=== PATIENT | female | born 1990 | race Caucasian/White ===

== ENCOUNTER 2016-11-15 05:28 | Emergency (ER) | payer OTHER ==
[2016-11-15 05:37] VITALS: BMI 35.2
--- NOTE | 2016-11-15 05:47 | PDOC ---
History of Present Illness - General History Source: Patient Exam Limitations: No Limitations - History of Present Illness Initial Comments: 11/15/16 06:09 The patient is a 26 year old female (), with a significant past medical history of left ovary removal and cholecystectomy, who presents to the emergency department complaining of non-radiating abdominal pain for one day. The patient reports the pain is crampy and intermittent in nature, with episodes lasting several minutes. The patient reports her LMP was approximately one month ago and is expecting it to initiate in 1-2 days. She states she is short of breath when the pain begins, but denies any chest pain, palpitations, or diaphoresis. She reports several episodes of nonbloody vomiting and diarrhea one day ago. She denies associated nausea or constipation. She denies any fever , chills, cough, headache, dizziness, changes in vision, or changes in urination patterns. She denies any recent travel or sick contacts. Allergies: NKDA. Seafood. Past Surgical History: LT ovary removal, cholecystectomy Social History: Non-smoker. Denies alcohol or drug use. <Remigio Barroso - Last Filed: 11/15/16 06:08> <Sirisha Francisco - Last Filed: 11/17/16 00:55> - General Chief Complaint: Pain, Acute Stated Complaint: ABDOMINAL PAIN Time Seen by Provider: 11/15/16 05:47 Past History <Remigio Barroso - Last Filed: 11/15/16 06:08> - Past Medical History Suicide Attempt (Hx): No - Surgical History Abdominal Surgery: Yes (LT ovary removed) Cholecystectomy: Yes - Immunization History Immunization Up to Date: No - Psycho/Social/Smoking Cessation Hx Anxiety: No Suicidal Ideation: No Smoking Status: No Smoking History: Never smoked Years of Tobacco Use: 0 Have you smoked in the past 12 months: No Number of Cigarettes Smoked Daily: 0 Cigars Per Day: 0 Hx Alcohol Use: No Drug/Substance Use Hx: No Substance Use Type: None <Sirisha Francisco - Last Filed: 11/17/16 00:55> - Past Medical History Allergies/Adverse Reactions: Allergies Allergy/AdvReac Type Severity Reaction Status Date / Time SEAFOOD AdvReac Vomiting Uncoded 11/15/16 05:31 Home Medications: Ambulatory Orders NK [No Known Home Medication] 11/15/16 Review of Systems - Review of Systems Able to Perform ROS?: Yes Comments:: 11/15/16 06:09 GENERAL/CONSTITUTIONAL: No fever or chills. No weakness. HEAD, EYES, EARS, NOSE AND THROAT: No change in vision. No ear pain or discharge. No sore throat. CARDIOVASCULAR: _Mild SOB. No chest pain. RESPIRATORY: No cough, wheezing, or hemoptysis. GASTROINTESTINAL: +Abdominal pain, +vomiting, +diarrhea. No nausea or constipation. GENITOURINARY: No dysuria, frequency, or change in urination. MUSCULOSKELETAL: No joint or muscle swelling or pain. No neck or back pain. SKIN: No rash NEUROLOGIC: No headache, vertigo, loss of consciousness, or change in strength/ sensation. ENDOCRINE: No increased thirst. No abnormal weight change. HEMATOLOGIC/LYMPHATIC: No anemia, easy bleeding, or history of blood clots. ALLERGIC/IMMUNOLOGIC: No hives or skin allergy. <Remigio Barroso - Last Filed: 11/15/16 06:08> *Physical Exam - Vital Signs Last Vital Signs Temp Pulse Resp BP Pulse Ox 97.7 F 95 H 18 132/70 96 11/15/16 05:35 11/15/16 05:35 11/15/16 05:35 11/15/16 05:35 11/15/16 05:35 - Physical Exam Comments: 11/15/16 06:09 GENERAL: Awake, alert, and fully oriented, in no acute distress HEAD: No signs of trauma EYES: PERRLA, EOMI, sclera anicteric, conjunctiva clear ENT: Auricles normal inspection, hearing grossly normal, nares patent, oropharynx clear without exudates. Moist mucosa NECK: Normal ROM, supple, no lymphadenopathy, JVD, or masses LUNGS: Breath sounds equal, clear to auscultation bilaterally. No wheezes, and no crackles HEART: Regular rate and rhythm, normal S1 and S2, no murmurs, rubs or gallops ABDOMEN: +Tenderness to palpation in the lower epigastric region. Normoactive bowel sounds. No guarding, no rebound. No masses EXTREMITIES: Normal range of motion, no edema. No clubbing or cyanosis. No cords, erythema, or tenderness NEUROLOGICAL: Cranial nerves II through XII grossly intact. Normal speech, normal gait SKIN: Warm, Dry, normal turgor, no rashes or lesions noted. <Remigio Barroso - Last Filed: 11/15/16 06:08> - Vital Signs Last Vital Signs Temp Pulse Resp BP Pulse Ox 97.7 F 95 H 18 132/70 96 11/15/16 05:35 11/15/16 05:35 11/15/16 05:35 11/15/16 05:35 11/15/16 05:35 <Sirisha Francisco - Last Filed: 11/17/16 00:55> ED Treatment Course - LABORATORY CBC & Chemistry Diagram: 11/15/16 06:12 11/15/16 07:00 <Sirisha Francisco - Last Filed: 11/17/16 00:55> Medical Decision Making - Medical Decision Making 11/15/16 06:58 Pt comes with vomiting multiple times and abdominal pain. She has a totally normal exam, except that she complains of LLQ pain. SHe is afebrile. No diarrhea and no dysuria. She has minimal pain with palpation. She has no guarding and no rebound. She doesn't know if she is , but she expects her next period any day now. Pt will be hydrated and given pepcid and zofran and she will have labs sent and UA and urine . Pt appears well; she was given toradol for the abd pain 11/15/16 07:03 Pt will be signed out to the day ER doc Labs pending <Sirisha Francisco - Last Filed: 11/17/16 00:55> *DC/Admit/Observation/Transfer - Attestations Scribe Attestion: 11/15/16 06:09 Documentation prepared by Remigio Barroso, acting as senior medical billing specialist for Sirisha Francisco MD. <Remigio Barroso - Last Filed: 11/15/16 06:08> <Sirisha Francisco - Last Filed: 11/17/16 00:55> Diagnosis at time of Disposition: Abdominal pain, Diarrhea, Nausea and vomiting - Discharge Dispostion Disposition: HOME Condition at time of disposition: Stable - Referrals Referrals: Smitha Neal MD [Primary Care Provider] - - Patient Instructions Printed Discharge Instructions: Diarrhea Additional Instructions: Make sure that you drink lots of fluids and maintain hydration. He may eat any foods that do not irritate her stomach; I recommend that you start out with bland foods and advance your diet as tolerated. Follow-up with her primary care physician within one week. Return to the emergency department if your symptoms persist, worsen, or new symptoms arise.
[2016-11-15] MEDS ORDERED: KETOROLAC TROMETHAMINE 30 MG/1 ML VIAL IVPUSH ONE (06:24)
[2016-11-15 06:34] LABS: BASOPHIL 0.3 % (0-2.0); MCH 29.5 pg (25.7-33.7); MCHC 33.9 g/dl (32.0-36.0); MEAN PLT VOLUME 9.4 fl (7.5-11.1); NEUTROPHILS 85.8 % (42.8-82.8); PLATELET COUNT 262 K/MM3 (134-434); RDW 14.5 % (11.6-15.6); WHITE BLOOD COUNT 5.6 K/mm3 (4.0-10.0)
[2016-11-15 07:47] LABS: ANION GAP 10 (8-16); BILIRUBIN,TOTAL 0.5 mg/dL (0.2-1.0); CALCIUM 7.6 mg/dL (8.5-10.1); CO2 25 mmol/L (21-32); CREATININE 0.6 mg/dL (0.55-1.02); GLUCOSE,RANDOM 114 mg/dL (74-106); SGOT/AST 19 U/L (15-37); SGPT/ALT 19 U/L (12-78); TOT PROT 6.4 g/dl (6.4-8.2)
[2016-11-15 07:48] LABS: ALK PHOS 82 U/L (45-117)
[2016-11-15 09:32] LABS: NEG URINE CALC NO; URINE APPEARANCE SL CLOUDY; URINE BILIRUBIN NEGATIVE (NEGATIVE); URINE BLOOD NEGATIVE (NEGATIVE); URINE COLOR YELLOW; URINE GLUCOSE (UA) NEGATIVE (NEGATIVE); URINE KETONE 1+ (NEGATIVE); URINE PROTEIN NEGATIVE (NEGATIVE); URINE UROBILINOGEN NORMAL E.U./dl (0.2-1.0)
[2016-11-15 09:33] LABS: URINE LEUK ESTERASE NEGATIVE (NEGATIVE); URINE NITRITE NEGATIVE (NEGATIVE)
[2016-11-15 09:36] VITALS: BP 106/70; PULSE 88
[2016-11-15] MEDS ORDERED: IBUPROFEN 400 MG TABLET (FP) PO ONE ×2 (09:54→10:10)
[2016-11-15 10:24] VITALS: TEMP 98.5
--- NOTE | 2016-11-15 10:25 | PDOC ---
*Physical Exam - Vital Signs Last Vital Signs Temp Pulse Resp BP Pulse Ox 97.7 F 88 18 106/70 100 11/15/16 05:35 11/15/16 09:36 11/15/16 09:36 11/15/16 09:36 11/15/16 09:36 ED Treatment Course - LABORATORY CBC & Chemistry Diagram: 11/15/16 06:12 11/15/16 07:00 - ADDITIONAL ORDERS Additional order review: Laboratory Results 11/15/16 11/15/16 11/15/16 07:00 06:59 06:12 Sodium 142 Cancelled Potassium 3.9 Cancelled Chloride 107 Cancelled Carbon Dioxide 25 Cancelled Anion Gap 10 Cancelled BUN 13 Cancelled Creatinine 0.6 Cancelled Creat Clearance w eGFR > 60 Cancelled Random Glucose 114 H D Cancelled Calcium 7.6 L Cancelled Total Bilirubin 0.5 D Cancelled AST 19 Cancelled ALT 19 D Cancelled Alkaline Phosphatase 82 D Cancelled Total Protein 6.4 Cancelled Albumin 3.0 L Cancelled Lipase 81 Cancelled Serum , Qual Negative Urine Color Urine Appearance Urine pH Ur Specific [place] Urine Protein Urine Glucose (UA) Urine Ketones Urine Blood Urine Nitrite Urine Bilirubin Urine Ictotest Prot Sulfosalicylic Acd Urine Urobilinogen Ur Leukocyte Esterase 11/15/16 06:12 Sodium Potassium Chloride Carbon Dioxide Anion Gap BUN Creatinine Creat Clearance w eGFR Random Glucose Calcium Total Bilirubin AST ALT Alkaline Phosphatase Total Protein Albumin Lipase Serum , Qual Negative Urine Color Yellow Urine Appearance Sl cloudy Urine pH 6.0 Ur Specific [place] 1.005 Urine Protein Negative Urine Glucose (UA) Negative Urine Ketones 1+ H Urine Blood Negative Urine Nitrite Negative Urine Bilirubin Negative Urine Ictotest Negative Prot Sulfosalicylic Acd Negative Urine Urobilinogen Normal Ur Leukocyte Esterase Negative D 11/15/16 06:12 RBC 4.46 MCV 87.0 MCHC 33.9 RDW 14.5 MPV 9.4 D Neutrophils % 85.8 H D Lymphocytes % 9.3 D Monocytes % 4.6 Eosinophils % 0.0 D Basophils % 0.3 - Medications Given in the ED: ED Medications Discontinued Medications Generic Name Dose Route Start Last Admin Trade Name Freq PRN Reason Stop Dose Admin Ketorolac Tromethamine 30 mg 11/15/16 06:24 11/15/16 06:27 Toradol Injection - IVPUSH 11/15/16 06:25 30 mg ONCE ONE Administration Progress Note - Progress Note Progress Note: The patient was endorsed to me at [address] Harding pending labs and reevaluation. The labs were reviewed and are noted in the electronic medical record. The patient is not . The urine analysis is negative. The patient is feeling improved and has intermittent diarrhea associated with abdominal cramping. She was able to tolerate by mouth without nausea or vomiting. The plan is to discharge the patient home. I've advised the patient to follow-up with her primary care physician within one week. I've also advised the patient that she may return to the emergency department if her symptoms persist, worsen, or new symptoms arise. *DC/Admit/Observation/Transfer Diagnosis at time of Disposition: Abdominal pain, Diarrhea, Nausea and vomiting - Discharge Dispostion Disposition: HOME Condition at time of disposition: Stable Admit: No - Referrals Referrals: Smitha Neal MD [Primary Care Provider] - - Patient Instructions Printed Discharge Instructions: Diarrhea Additional Instructions: Make sure that you drink lots of fluids and maintain hydration. He may eat any foods that do not irritate her stomach; I recommend that you start out with bland foods and advance your diet as tolerated. Follow-up with her primary care physician within one week. Return to the emergency department if your symptoms persist, worsen, or new symptoms arise. - Post Discharge Activity
== END 2016-11-15 10:56 | disposition home or self-care (01) ==
LOC: JER 05:28
PROC: 3E0333Z Introduction of Anti-inflammatory into Peripheral Vein, Percutaneous Approach (ICD-10-PCS; principal; 2016-11-15)
DX: R10.84 Generalized abdominal pain (principal); R11.2 Nausea with vomiting, unspecified
CPT/HCPCS: 36415; 80053; 81003; 83690; 84703; 85025; 96374; 99283-25

== ENCOUNTER 2016-11-19 15:14 | Emergency (ER) | payer OTHER ==
[2016-11-19 15:18] VITALS: BP 118/70; PULSE 57; TEMP 97.7; BMI 39.4
--- NOTE | 2016-11-19 15:40 | PDOC ---
History of Present Illness - General Chief Complaint: Pain Stated Complaint: ABD PAIN, DIARRHEA Time Seen by Provider: 11/19/16 15:36 History Source: Patient Exam Limitations: No Limitations - History of Present Illness Initial Comments: 11/19/16 15:46 Patient is a 26 year old female with PMH of left ovary removal (cyst) who presents to ED with abdominal pain. Patient was seen in ED last Thursday ( November 15) for diffuse abdominal pain, vomiting & diarrhea. She was discharged after Zofran & pepcid administered and after (-) workup. Since then, patient states her nausea & vomiting has resolved. However, her diarrhea has continued, and although it has markedly improved, her diffuse abdominal tenderness continues. Patient is currently on her menstrual period. Past History - Past Medical History Allergies/Adverse Reactions: Allergies Allergy/AdvReac Type Severity Reaction Status Date / Time SEAFOOD AdvReac Vomiting Uncoded 11/19/16 15:18 Home Medications: Ambulatory Orders NK [No Known Home Medication] 11/15/16 Suicide Attempt (Hx): No - Surgical History Abdominal Surgery: Yes (LT ovary removed) Cholecystectomy: Yes - Immunization History Immunization Up to Date: No - Psycho/Social/Smoking Cessation Hx Anxiety: No Suicidal Ideation: No Smoking Status: No Smoking History: Never smoked Years of Tobacco Use: 0 Have you smoked in the past 12 months: No Number of Cigarettes Smoked Daily: 0 Cigars Per Day: 0 Hx Alcohol Use: No Drug/Substance Use Hx: No Substance Use Type: None Review of Systems - Review of Systems Able to Perform ROS?: Yes Is the patient limited Georgian proficient: No Constitutional: Yes: Malaise ABD/GI: Yes: Diarrhea, Abdominal cramping. No: Nausea, Vomiting All Other Systems: Reviewed and Negative *Physical Exam - Vital Signs Last Vital Signs Temp Pulse Resp BP Pulse Ox 97.7 F 57 L 20 118/70 100 11/19/16 15:15 11/19/16 15:15 11/19/16 15:15 11/19/16 15:15 11/19/16 15:15 - Physical Exam General Appearance: Yes: Nourished, Appropriately Dressed HEENT: positive: EOMI, LEYDI, Normal ENT Inspection, Pharynx Normal Neck: positive: Trachea midline, Normal Thyroid, Supple Respiratory/Chest: positive: Lungs Clear, Normal Breath Sounds Cardiovascular: positive: Regular Rhythm, Regular Rate, S1, S2 Gastrointestinal/Abdominal: positive: Normal Bowel Sounds, Flat, Soft Musculoskeletal: positive: Normal Inspection Extremity: positive: Normal Capillary Refill, Normal Inspection, Normal Range of Motion Integumentary: positive: Normal Color, Dry, Warm Neurologic: positive: serology technician II-XII NML intact, Fully Oriented, Alert, Normal Mood/ Affect, Motor Strength 02/20 ED Treatment Course - LABORATORY CBC & Chemistry Diagram: 11/19/16 16:05 11/19/16 16:05 Medical Decision Making - Medical Decision Making 11/19/16 16:36 Patient states vomiting has resolved and diarrhea is becoming less frequent. Viral gastroenteritis likely continued from this weekend but is improving. Will treat with IVF given diarrhea. Pending lab results can be discharged. 11/19/16 18:38 CBC without signs of leukocytosis. CMP shows no signs dehydration. UA without signs of UTI. Patient to be discharged with instructions to f/u with PCP within 1-2 days. Instructed to keep hydrated & start introducing soup to her diet later tonight and gradually upgrade to solid foods. Instructed to return to ED if abdominal pain worsens or she develops fever or new symptoms. *DC/Admit/Observation/Transfer Diagnosis at time of Disposition: Viral gastroenteritis - Discharge Dispostion Disposition: HOME Condition at time of disposition: Improved Admit: No - Patient Instructions Additional Instructions: Followup with your primary doctor within 1-2 days for checkup Stay hydrated. Start with soup tonight & gradually upgrade your diet to solid foods. If abdominal pain worsens or diarrhea/vomiting continues, return to ED. - Post Discharge Activity Work/School Note: Back to Work
[2016-11-19] MEDS ORDERED: SODIUM CHLORIDE 1,000 ML IV STA (16:04)
[2016-11-19 16:14] LABS: BASOPHIL 0.9 % (0-2.0); EOSINOPHIL 2.3 % (0-4.5); MCH 29.3 pg (25.7-33.7); MCHC 33.4 g/dl (32.0-36.0); MEAN CELL VOLUME 87.6 fl (80-96); MEAN PLT VOLUME 8.5 fl (7.5-11.1); NEUTROPHILS 62.9 % (42.8-82.8); PLATELET COUNT 270 K/MM3 (134-434); RDW 14.3 % (11.6-15.6); WHITE BLOOD COUNT 6.4 K/mm3 (4.0-10.0)
[2016-11-19 16:16] LABS: URINE APPEARANCE CLEAR; URINE BILIRUBIN NEGATIVE (NEGATIVE); URINE COLOR YELLOW; URINE GLUCOSE (UA) NEGATIVE (NEGATIVE); URINE KETONE NEGATIVE (NEGATIVE); URINE NITRITE NEGATIVE (NEGATIVE); URINE PROTEIN NEGATIVE (NEGATIVE); URINE UROBILINOGEN 2.0 E.U/dl E.U./dl (0.2-1.0)
[2016-11-19 16:18] LABS: URINE BLOOD 3+ (NEGATIVE); URINE LEUK ESTERASE TRACE (NEGATIVE)
[2016-11-19 16:20] LABS: URINE MUCUS MANY; URINE RBC 672 /hpf (0-3); URINE WBC 8 /hpf (3-5)
--- NOTE | 2016-11-19 16:32 | PDOC ---
Attending Attestation - Resident Resident Name: GladisWalt - ED Attending Attestation I have performed the following: I have examined & evaluated the patient, The case was reviewed & discussed with the resident, I agree w/resident's findings & plan - HPI HPI: 11/19/16 17:00 26y F no pmhx presents with abd pain and diarrhea x 6 days. Pt stattes it originally started with vomiting/diarrhea, she came for evaluation on thursday and had blood work, was d/c and has since felt improved. states her diarrhea is less frequent, vomiting resolved and abdominal pain is improved. Pt denie sany fever, melena, bpr, recent abx use. 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 pts exam unremarkable, with soft abdomen, well hydrated mucus membranes. will ck labs, will give fluids will reassess, do not anticipate need for CT based on abdominal exam. likely d/c with supportive care. 11/19/16 19:00 labs unremarkable UA shows blood but likely secondary to pt having her period currenlty pt wlil be d/c with pmd fu return precautions were discussed - Physicial Exam PE: 11/24/16 08:04 see above - Medical Decision Making 11/24/16 08:04 see above 11/24/16 08:05
[2016-11-19 16:48] LABS: ALBUMIN 3.6 g/dl (3.4-5.0); ANION GAP 7 (8-16); BILIRUBIN,TOTAL 0.4 mg/dL (0.2-1.0); CALCIUM 8.6 mg/dL (8.5-10.1); CO2 31 mmol/L (21-32); CREATININE 0.6 mg/dL (0.55-1.02); GLUCOSE,RANDOM 81 mg/dL (74-106); SGOT/AST 21 U/L (15-37); SGPT/ALT 30 U/L (12-78); TOT PROT 7.2 g/dl (6.4-8.2)
[2016-11-19 16:49] LABS: ALK PHOS 84 U/L (45-117)
== END 2016-11-19 18:59 | disposition home or self-care (01) ==
LOC: JER 15:14
PROC: 3E0337Z Introduction of Electrolytic and Water Balance Substance into Peripheral Vein, Percutaneous Approach (ICD-10-PCS; principal; 2016-11-19)
DX: K52.9 Noninfective gastroenteritis and colitis, unspecified (principal); B97.89 Other viral agents as the cause of diseases classified elsewhere
CPT/HCPCS: 36415; 80053; 81003; 81015; 83690; 84703; 85025; 96360; 99282-25

== ENCOUNTER 2017-08-19 21:39 | Emergency (ER) | payer OTHER ==
[2017-08-19] MEDS ORDERED: ACETAMINOPHEN 500 MG TABLET (FP) PO ONE (21:49)
--- NOTE | 2017-08-19 21:49 | PDOC ---
Rapid Medical Evaluation Time Seen by Provider: 08/19/17 21:40 Medical Evaluation: Allergies Allergy/AdvReac Type Severity Reaction Status Date / Time No Known Drug Allergies Allergy Verified 04/18/17 04:55 SEAFOOD AdvReac Vomiting Uncoded 04/18/17 04:45 08/19/17 21:40 I have performed a brief in-person evaluation of this patient. The patient presents with a chief complaint of fever and upper back pain. Pertinent physical exam findings: PULM: Respirations even and unlabored. Lungs CTAB. Card: S1S2 present. No murmurs, rub or gallop. ENT: Erythema to tonsillar pilars. No exudates noted. No cervical lymphadenopathy. M/S: Tenderness to T2-T8. No CVAT. I have ordered the following: Tylenol 1000mg PO The patient will proceed to the ED for further evaluation.
[2017-08-19 21:50] VITALS: BMI 39.6
[2017-08-20] MEDS ORDERED: DICYCLOMINE HCL 10 MG CAPSULE PO ONE (00:19)
[2017-08-20] MEDS ORDERED: ACETAMINOPHEN 325 MG TABLET (FP) ONE (00:23)
[2017-08-20] MEDS ORDERED: DICYCLOMINE HCL 10 MG CAPSULE ONE (00:23)
[2017-08-20 00:44] LABS: URINE APPEARANCE SLCLOUDY; URINE BLOOD 2+ (NEGATIVE); URINE COLOR YELLOW; URINE GLUCOSE (UA) NEGATIVE (NEGATIVE); URINE KETONE NEGATIVE (NEGATIVE); URINE NITRITE NEGATIVE (NEGATIVE); URINE PROTEIN NEGATIVE (NEGATIVE); URINE UROBILINOGEN NEGATIVE mg/dL (0.2-1.0)
--- NOTE | 2017-08-20 00:45 | PDOC ---
History of Present Illness - General History Source: Patient <Haresh Meléndez - Last Filed: 08/20/17 01:53> - General History Source: Patient Exam Limitations: No Limitations - History of Present Illness Initial Comments: 08/20/17 02:04 The patient is a 27 year old female with no significant PMH who presents to the emergency department with 1 day of generalized malaise, low grade fever, and back pain. The patient describes the back pain as localized in the upper thoracic region with no radiation, 6/10 in severity at rest and 10/10 at its worst. She reports visiting urgent care today and having a urinalysis, which showed no remarkable findings. The patient also reports a diffuse headache in the past which has been throbbing with no radiation, but denies headache upon presentation. The patient denies chest pain, shortness of breath and dizziness. Denies chills, nausea, vomit, diarrhea and constipation. Denies dysuria, frequency, urgency and hematuria. LMP: 08/20/2017 Allergies: NKDA Past surgical history: Left ovary removal. Cholecystectomy. Social history: No reported toxic habits. PCP: Dr. Guidry <Robin Hendricks - Last Filed: 08/20/17 02:05> - General Chief Complaint: Pain Stated Complaint: FEVER/BACK PAIN Time Seen by Provider: 08/19/17 21:40 Past History - Past Medical History COPD: No Other medical history: Pt denies - Surgical History Abdominal Surgery: Yes (LT ovary removed) Cholecystectomy: Yes - Reproductive History Is Patient Now?: No - Immunization History Immunization Up to Date: No - Suicide/Smoking/Psychosocial Hx Smoking Status: No Smoking History: Never smoked Years of Tobacco Use: 0 Have you smoked in the past 12 months: No Number of Cigarettes Smoked Daily: 0 Cigars Per Day: 0 Information on smoking cessation initiated: No Hx Alcohol Use: No Drug/Substance Use Hx: No Substance Use Type: None <Haresh Meléndez - Last Filed: 08/20/17 01:53> <Robin Hendricks - Last Filed: 08/20/17 02:05> - Past Medical History Allergies/Adverse Reactions: Allergies Allergy/AdvReac Type Severity Reaction Status Date / Time No Known Drug Allergies Allergy Verified 08/19/17 21:45 SEAFOOD AdvReac Vomiting Uncoded 04/18/17 04:45 Home Medications: Ambulatory Orders Dicyclomine HCl [Bentyl -] 20 mg PO Q8H #30 tablet 08/20/17 Methocarbamol 500 mg PO DAILY 08/20/17 Review of Systems - Review of Systems Able to Perform ROS?: Yes Comments:: 08/20/17 02:04 CONSTITUTIONAL: (+) Generalized malaise. (+) Low grade fever. Absent: chills, diaphoresis, generalized weakness, loss of appetite HEENT: Absent: rhinorrhea, nasal congestion, throat pain, throat swelling, difficulty swallowing, mouth swelling, ear pain, eye pain, visual Changes CARDIOVASCULAR: Absent: chest pain, syncope, palpitations, irregular heart rate, lightheadedness , peripheral edema RESPIRATORY: Absent: cough, shortness of breath, dyspnea with exertion, orthopnea, wheezing, stridor, hemoptysis GASTROINTESTINAL: Absent: abdominal pain, abdominal distension, nausea, vomiting, diarrhea, constipation, melena, hematochezia GENITOURINARY: Absent: dysuria, frequency, urgency, hesitancy, hematuria, flank pain, genital pain MUSCULOSKELETAL: (+) Upper back pain. Absent: arthralgia, joint swelling SKIN: Absent: rash, itching, pallor HEMATOLOGIC/IMMUNOLOGIC: Absent: easy bleeding, easy bruising, lymphadenopathy, frequent infections ENDOCRINE: Absent: unexplained weight gain, unexplained weight loss, heat intolerance, cold intolerance NEUROLOGIC: Absent: headache, focal weakness or paresthesias, dizziness, unsteady gait, seizure, mental status changes, bladder or bowel incontinence PSYCHIATRIC: Absent: anxiety, depression, suicidal or homicidal ideation, hallucinations. <Robin Hendricks - Last Filed: 08/20/17 02:05> *Physical Exam - Vital Signs Last Vital Signs Temp Pulse Resp BP Pulse Ox 98.6 F 95 H 18 120/43 99 08/19/17 21:45 08/19/17 21:45 08/19/17 21:45 08/19/17 21:45 08/19/17 21:45 <Haresh Meléndez - Last Filed: 08/20/17 01:53> - Vital Signs Last Vital Signs Temp Pulse Resp BP Pulse Ox 98 F 86 18 117/57 95 08/20/17 02:00 08/20/17 02:00 08/20/17 02:00 08/20/17 02:00 08/20/17 02:00 - Physical Exam Comments: 08/20/17 02:04 GENERAL: Well developed, well nourished. Awake and alert. No acute distress. HEENT: Normocephalic, atraumatic. PERRLA, EOMI. No conjunctival pallor. Sclera are non- icteric. Moist mucous membranes. Oropharynx is clear. NECK: Supple. Full ROM. No JVD. Carotid pulses 2+ and symmetric, without bruits. No thyromegaly. No lymphadenopathy. CARDIOVASCULAR: Regular rate and rhythm. No murmurs, rubs, or gallops. Distal pulses are 2+ and symmetric. PULMONARY: No evidence of respiratory distress. Lungs clear to auscultation bilaterally. No wheezing, rales or rhonchi. ABDOMINAL: Soft. Non-tender. Non-distended. No rebound or guarding. No organomegaly. Normoactive bowel sounds. MUSCULOSKELETAL Normal range of motion at all joints. No bony deformities or tenderness. No CVA tenderness. EXTREMITIES: No cyanosis. No clubbing. No edema. No calf tenderness. SKIN: Warm and dry. Normal capillary refill. No rashes. No jaundice. NEUROLOGICAL: Alert, awake, appropriate. Cranial nerves 2-12 intact. No deficits to light touch and temperature in face, upper extremities and lower extremities. No motor deficits in the in face, upper extremities and lower extremities. Normoreflexic in the upper and lower extremities. Normal speech. Toes are downgoing bilaterally. Gait is normal without ataxia. PSYCHIATRIC: Cooperative. Good eye contact. Appropriate mood and affect. <Robin Hendricks - Last Filed: 08/20/17 02:05> ED Treatment Course - Medications Given in the ED: ED Medications Discontinued Medications Generic Name Dose Route Start Last Admin Trade Name Freq PRN Reason Stop Dose Admin Acetaminophen 1,000 mg 08/19/17 21:49 08/20/17 00:29 Tylenol - PO 08/19/17 21:50 1,000 mg ONCE ONE Administration Dicyclomine HCl 20 mg 08/20/17 00:19 08/20/17 00:29 Bentyl - PO 08/20/17 00:20 20 mg ONCE ONE Administration <Haresh Meléndez - Last Filed: 08/20/17 01:53> - ADDITIONAL ORDERS Additional order review: Laboratory Results 08/20/17 00:33 Urine Color Yellow Urine Appearance Slcloudy Urine pH 5.0 Ur Specific [place] 1.021 Urine Protein Negative Urine Glucose (UA) Negative Urine Ketones Negative Urine Blood 2+ H Urine Nitrite Negative Urine Bilirubin 2.0 Urine Urobilinogen Negative Urine RBC 165 Urine WBC 3 Ur Epithelial Cells Rare Urine Mucus Few Urine HCG, Qual Negative - Medications Given in the ED: ED Medications Discontinued Medications Generic Name Dose Route Start Last Admin Trade Name Dagmar PRN Reason Stop Dose Admin Acetaminophen 1,000 mg 08/19/17 21:49 08/20/17 00:29 Tylenol - PO 08/19/17 21:50 1,000 mg ONCE ONE Administration Dicyclomine HCl 20 mg 08/20/17 00:19 08/20/17 00:29 Bentyl - PO 08/20/17 00:20 20 mg ONCE ONE Administration <Robin Hendricks - Last Filed: 08/20/17 02:05> Medical Decision Making - Medical Decision Making 08/20/17 01:45 Dr. Meléndez: The scribe's documentation has been prepared under my direction and personally reviewed by me in its entirery. I confirm that the note above accurately reflects all work, treatment, procedures, and medical decision making performed by me. <Haresh Meléndez - Last Filed: 08/20/17 01:53> *DC/Admit/Observation/Transfer - Discharge Dispostion Admit: No <Haresh Meléndez - Last Filed: 08/20/17 01:53> - Attestations Scribe Attestion: 08/20/17 02:04 Documentation prepared by Robin Hendricks, acting as medical data entry clerk for Haresh Meléndez DO. <Robin Hendricks - Last Filed: 08/20/17 02:05> Diagnosis at time of Disposition: [place] - Discharge Dispostion Disposition: HOME Condition at time of disposition: Stable - Prescriptions Prescriptions: Dicyclomine HCl [Bentyl -] 20 mg PO Q8H #30 tablet - Referrals Referrals: Carlee Maravilla MD [Primary Care Provider] - - Patient Instructions Printed Discharge Instructions: DI for Pelvic Pain Additional Instructions: take medication as directed. Pt return if symptoms don't improve. Follow up with yur primary care or [facility] as needed
[2017-08-20 00:49] LABS: URINE MUCUS FEW; URINE RBC 165 /hpf (0-3); URINE WBC 3 /hpf (3-5)
[2017-08-20 02:01] VITALS: BP 117/57; PULSE 86; TEMP 98
[2017-08-20 11:13] LABS: URINE LEUK ESTERASE Negative (NEGATIVE)
== END 2017-08-20 01:58 | disposition home or self-care (01) ==
LOC: JER 21:39
DX: N94.0 Mittelschmerz (principal)
CPT/HCPCS: 81003; 81015; 84703; 87086; 99284-25

== ENCOUNTER 2017-10-08 20:22 | Emergency (ER) | payer OTHER ==
[2017-10-08 20:30] VITALS: BMI 39.6
--- NOTE | 2017-10-08 20:31 | PDOC ---
Rapid Medical Evaluation Chief Complaint: Pain Time Seen by Provider: 10/08/17 20:30 Medical Evaluation: Allergies Allergy/AdvReac Type Severity Reaction Status Date / Time No Known Drug Allergies Allergy Verified 09/26/17 20:39 SEAFOOD AdvReac Vomiting Uncoded 09/26/17 20:39 10/08/17 20:30 I have performed a brief in-person evaluation of this patient. The patient presents with a chief complaint of: Generalized abdominal pain w/ nausea. Pertinent physical exam findings: Generalized abdominal pain I have ordered the following: urinalysis, urine preg. The patient will proceed to the ED for further evaluation. Patient recently diagnosed with PID and taking Doxycycline. Discharge Disposition - Referrals Referrals: Carlee Maravilla MD [Primary Care Provider] - - Patient Instructions - Post Discharge Activity
[2017-10-08 21:54] LABS: URINE APPEARANCE SLCLOUDY; URINE BILIRUBIN NEGATIVE (NEGATIVE); URINE BLOOD 2+ (NEGATIVE); URINE COLOR YELLOW; URINE GLUCOSE (UA) NEGATIVE (NEGATIVE); URINE KETONE NEGATIVE (NEGATIVE); URINE NITRITE NEGATIVE (NEGATIVE); URINE PROTEIN NEGATIVE (NEGATIVE); URINE UROBILINOGEN NEGATIVE mg/dL (0.2-1.0)
[2017-10-08 21:57] LABS: URINE LEUK ESTERASE 2+ (NEGATIVE)
[2017-10-08 21:58] LABS: URINE MUCUS MANY; URINE RBC 17 /hpf (0-3); URINE WBC 15 /hpf (3-5)
--- NOTE | 2017-10-08 23:16 | PDOC ---
Attending Attestation - HPI HPI: 10/08/17 23:27 The patient is a 27 year old female with a past medical history of cholecystectomy, oophorectomy, and [id number], who presents to the emergency department with abdominal pain and nausea for 1 day. The patient describes her pain as generalized, mostly periumbilical, and associated with vomiting. She also reports distinct right adnexa pain radiating to her lower right back. She notes that this pain feels similarly to the pain she had prior to her oophorectomy. She recently visited this ED (two weeks ago) with 1 month of suprapubic pain, she was diagnosed with PAD and prescribed a cycle of Doxycycline Which ends thursday. She notes that she started taking oral contraceptive 4 days ago, her LMP was 5 days ago, and she last saw her OBGYN 2 weeks ago. Documentation prepared by Louie Ortiz, acting as director medical for Haresh Meléndez DO. <Louie Ortiz - Last Filed: 10/08/17 23:27> - Resident Resident Name: Colton Crowe - ED Attending Attestation I have performed the following: I have examined & evaluated the patient, The case was reviewed & discussed with the resident, I agree w/resident's findings & plan, Exceptions are as noted - Physicial Exam PE: 10/13/17 19:20 *Physical Exam General Appearance: Yes: Appropriately Dressed. No: Apparent Distress, Intoxicated HEENT: positive: EOMI, LEYDI, Normal ENT Inspection, Normal Voice, TMs Normal, Pharynx Normal. negative: Pale Conjunctivae, Photophobia, Scleral Icterus (R), Scleral Icterus (L) Neck: positive: Trachea midline, Normal Thyroid, Supple. negative: Tender, Rigid, Carotid bruit, Stridor, Lymphadenopathy (R), Lymphadenopathy (L), Thyromegaly Respiratory/Chest: positive: Lungs Clear, Normal Breath Sounds. negative: Chest Tender, Respiratory Distress, Accessory Muscle Use, Labored Respiration, RES, Crackles, Rales, Rhonchi, Stridor, Wheezing, Dullness Cardiovascular: positive: Regular Rhythm, Regular Rate, S1, S2. negative: Edema , JVD, Murmur, Bradycardia, Tachycardia Vascular Pulses: Dorsalis-Pedis (R): 2+, Doralis-Pedis (L): 2+ Gastrointestinal/Abdominal: positive: Normal Bowel Sounds, Flat, Soft. negative : Tender, Organomegaly, Pulsatile Mass, Increased Bowel Sounds, Decreased BS, Distended, Guarding, Rebound, Hernia, Hepatomegaly, Spleenomegaly Lymphatic: negative: Adenopathy, Tenderness Musculoskeletal: positive: Normal Inspection. negative: CVA Tenderness, Decreased Range of Motion Extremity: positive: Normal Capillary Refill, Normal Inspection, Normal Range of Motion, Pelvis Stable. negative: Tender, Pedal Edema, Swelling, Erythema Integumentary: positive: Normal Color, Dry, Warm. negative: Cyanotic, Erythema , Jaundice, Rash Neurologic: positive: loan approver II-XII NML intact, Fully Oriented, Alert, Normal Mood/ Affect, Motor Strength 5/5. negative: EOM Palsy, Facial Droop, Sensory Defici - Medical Decision Making 10/13/17 19:21 Pt treated and released <Haresh Meléndez - Last Filed: 10/13/17 19:21>
--- NOTE | 2017-10-08 23:26 | PDOC ---
History of Present Illness - General Chief Complaint: Pain, Acute Stated Complaint: STOMACH PAIN Time Seen by Provider: 10/08/17 22:10 History Source: Patient - History of Present Illness Initial Comments: 10/08/17 23:25 27F with pmh of L oopharectomy and cholecystectomy presents with generalized abdominal discomfort, 5/10 LRQ pain radiating to the back. She report self- induced vomiting x5 to try and rid herself from the nausea. On 09/27 patient was diagnosed in the ED with PID for which she was given rocephin IM and a 14 day course of doxycycline. No STD test was done then. LRQ pain similar in nature to ovarian pain she experienced before her oopharectomy. Complains of pain while moving bowels but no dyspareunia. Last menstrual period Thursday. Started Oral Contraceptives on Thursday. Had intercourse with on Thursday. Brownish vaginal discharge this morning. No dysuria. OBGYN: Dr. Johnson seen 2 weeks ago. 10/08/17 23:31 10/08/17 23:50 Past History - Past Medical History Allergies/Adverse Reactions: Allergies Allergy/AdvReac Type Severity Reaction Status Date / Time No Known Drug Allergies Allergy Verified 10/08/17 20:30 SEAFOOD AdvReac Vomiting Uncoded 10/08/17 20:30 Home Medications: Ambulatory Orders Doxycycline Hyclate 100 mg PO BID #28 capsule 09/26/17 Ciprofloxacin HCl [Cipro] 500 mg PO BID 7 Days #14 tablet 10/09/17 Metronidazole [Flagyl -] 500 mg PO TID #7 tablet 10/09/17 Omeprazole 20 mg PO BID #30 tablet. 10/09/17 Ondansetron [Zofran *Odt*] 8 mg SL BID PRN #14 od.tablet 10/09/17 COPD: No - Surgical History Abdominal Surgery: Yes (LT ovary removed) Cholecystectomy: Yes - Immunization History Immunization Up to Date: No - Suicide/Smoking/Psychosocial Hx Smoking Status: No Smoking History: Never smoked Years of Tobacco Use: 0 Have you smoked in the past 12 months: No Number of Cigarettes Smoked Daily: 0 Cigars Per Day: 0 Hx Alcohol Use: No Drug/Substance Use Hx: No Substance Use Type: None Review of Systems - Review of Systems Able to Perform ROS?: Yes Is the patient limited Hungarian proficient: No Constitutional: Yes: Loss of Appetite HEENTM: No: Symptoms Reported Respiratory: No: Symptoms reported Cardiac (ROS): No: Symptoms Reported ABD/GI: Yes: See HPI : No: Symptoms Reported Musculoskeletal: No: Symptoms Reported All Other Systems: Reviewed and Negative *Physical Exam - Vital Signs Last Vital Signs Temp Pulse Resp BP Pulse Ox 97.8 F 63 16 149/86 100 10/08/17 20:26 10/08/17 20:26 10/08/17 20:26 10/08/17 20:26 10/08/17 20:26 - Physical Exam General Appearance: Yes: Nourished, Appropriately Dressed, Obese. No: Apparent Distress HEENT: positive: EOMI, LEYDI, Normal ENT Inspection Neck: negative: Tender Respiratory/Chest: positive: Lungs Clear, Normal Breath Sounds. negative: Chest Tender, Respiratory Distress Cardiovascular: positive: Regular Rhythm, Regular Rate, S1, S2 Gastrointestinal/Abdominal: positive: Normal Bowel Sounds, Tender (mildly LRQ), Flat Musculoskeletal: positive: Normal Inspection. negative: CVA Tenderness, CVA Tenderness (R), CVA Tenderness (L) Integumentary: positive: Normal Color, Dry, Warm Neurologic: positive: Fully Oriented, Normal Mood/Affect, Normal Response, Motor Strength 5/5 ED Treatment Course - LABORATORY CBC & Chemistry Diagram: 10/09/17 00:00 10/09/17 00:00 - ADDITIONAL ORDERS Additional order review: Laboratory Results 10/08/17 20:52 Urine Color Yellow Urine Appearance Slcloudy Urine pH 6.0 Ur Specific [place] 1.026 Urine Protein Negative Urine Glucose (UA) Negative Urine Ketones Negative Urine Blood 2+ H Urine Nitrite Negative Urine Bilirubin Negative Urine Urobilinogen Negative Urine WBC (Auto) 15 Urine RBC (Auto) 17 Ur Epithelial Cells Moderate Urine Mucus Many Urine HCG, Qual Negative Medical Decision Making - Medical Decision Making 10/09/17 00:05 CBC cmp TVUS ordered to r/o ovarian origin to pain, oral contrast given to r/o Appendicitis vs nephrolithiasis Other possible etiology is gi upset from Doxycycline or oral contraceptive. 10/09/17 01:45 TVUS: No sign of abcess, no free fluid in cul [place] sac. Negative us 10/09/17 05:48 Ct abdomen with PO and IV contrast: 1. Hepatomegaly 2. Descending colonic non-distention or mild colitis, potentially infectious or inflammatory. 3. Small hiatal hernia 10/09/17 06:12 Patient discharged with antibiotics, zofran, PPI's and GI referal. *DC/Admit/Observation/Transfer Diagnosis at time of Disposition: Colitis - Discharge Dispostion Disposition: HOME Condition at time of disposition: Improved Admit: No - Prescriptions Prescriptions: Ciprofloxacin HCl [Cipro] 500 mg PO BID 7 Days #14 tablet Metronidazole [Flagyl -] 500 mg PO TID #7 tablet Omeprazole 20 mg PO BID #30 tablet. Ondansetron [Zofran *Odt*] 8 mg SL BID PRN #14 od.tablet PRN Reason: Nausea - Referrals Referrals: Carlee Maravilla MD [Primary Care Provider] - Darryn Villagran MD [Staff Physician] - - Patient Instructions Printed Discharge Instructions: Probiotic Bifidobacterium Bifidum Associated with Improved Irritable Bowel , DI for Colitis Additional Instructions: Follow up with Dr. Villagran as soon as discharged. Continue antibiotics. Come back to the Emergency Department for any new, worsening or concerning symptom. - Post Discharge Activity
[2017-10-08 23:35] LABS: URINE LEUK ESTERASE TRACE (NEGATIVE)
[2017-10-08] MEDS ORDERED: ONDANSETRON 4 MG TABLET PO ONE (23:37)
[2017-10-08] MEDS ORDERED: ONDANSETRON *ODT* 4 MG TABLET ONE (23:45)
[2017-10-09 00:08] LABS: BASO % 0.2 % (0-2.0); EOS % 0.2 % (0-4.5); LYMPH # 1.5 (8-40); MCHC 33.7 g/dl (32.0-36.0); MEAN PLT VOLUME 8.9 fl (7.5-11.1); MONO # 0.3 # (3.8-10.2); NEUT # 6.8 # (42.8-82.8); NEUT % 78.4 % (42.8-82.8); PLATELET COUNT 249 K/MM3 (134-434); RDW 13.5 % (11.6-15.6); WHITE BLOOD COUNT 8.7 K/mm3 (4.0-10.0)
[2017-10-09 00:45] LABS: ALK PHOS 85 U/L (45-117); ANION GAP 10 (8-16); BILIRUBIN,TOTAL 0.5 mg/dL (0.2-1.0); CALCIUM 9.1 mg/dL (8.5-10.1); CO2 26 mmol/L (21-32); CREATININE 0.6 mg/dL (0.55-1.02); GLUCOSE,RANDOM 97 mg/dL (74-106); SGOT/AST 15 U/L (15-37); SGPT/ALT 20 U/L (12-78); TOT PROT 7.8 g/dl (6.4-8.2)
[2017-10-09] MEDS ORDERED: SODIUM CHLORIDE 1,000 ML IV STA (02:46)
[2017-10-09] MEDS ORDERED: ONDANSETRON 4 MG/2 ML VIAL IVPUSH STA (02:46)
[2017-10-09] MEDS ORDERED: metroNIDAZOLE 250 MG TABLET PO ONE (05:24)
[2017-10-09] MEDS ORDERED: LEVOFLOXACIN 750 MG TABLET PO SCH ×3 (05:30→10:00)
[2017-10-09 05:32] VITALS: BP 124/82; PULSE 70; TEMP 98.2
[2017-10-09] MEDS ORDERED: metroNIDAZOLE 250 MG TABLET ONE (05:45)
[2017-10-09] MEDS ORDERED: LEVOFLOXACIN 500 MG TABLET (FP) ONE (05:46)
[2017-10-09] MEDS ORDERED: LEVOFLOXACIN 250 MG TABLET (FP) ONE (05:46)
== END 2017-10-09 06:00 | disposition home or self-care (01) ==
LOC: JER 20:22
PROC: 3E033GC Introduction of Other Therapeutic Substance into Peripheral Vein, Percutaneous Approach (ICD-10-PCS; principal; 2017-10-08)
DX: K52.9 Noninfective gastroenteritis and colitis, unspecified (principal)
CPT/HCPCS: 36415; 74177-TC; 76830-TC; 80053; 81003; 81015; 84703; 85025; 99282-25

== ENCOUNTER 2017-10-12 03:43 | Emergency (ER) | payer OTHER ==
[2017-10-12] MEDS ORDERED: MAG HYDROX/AL HYDROX/SIMETH 30 ML UNIT-DOSE CUP PO ONE (05:35)
[2017-10-12] MEDS ORDERED: SODIUM CHLORIDE 1,000 ML IV STA ×3 (05:35→12:01)
[2017-10-12] MEDS ORDERED: morphine CARPU-JECT 4 MG/1 ML DISP.SYRIN IVPUSH ONE (05:35)
[2017-10-12] MEDS ORDERED: FAMOTIDINE 20 MG/50 ML IVPB 20 MG/50 ML MG IVPB ONE ×2 (05:35→06:41)
[2017-10-12 05:36] VITALS: BMI 39.6
--- NOTE | 2017-10-12 05:50 | PDOC ---
History of Present Illness - History of Present Illness Initial Comments: 10/12/17 05:49 "The patient is a 27 year old female with no PMH who presents to the emergency room with nausea, vomiting, and epigastric pain x one day. The patient reports she has been feeling nauseous throughout the day and has been unable eat any meals without feeling nauseous. The patient reports she is currently on Ciprofloxacin for colitis that was diagnosed about 3 days ago. She notes that her epigastric pain is often worse after taking the cipro. She denies recent fever, chills, headache or dizziness. She denies recent diarrhea or constipation. She denies chest pain or shortness of breath. Allergies: NKA Past Surgical History: Cholecystectomy PCP: Dr. Maravilla " <Nick Bustillo - Last Filed: 10/12/17 05:42> <Carlos Alberto Harrison - Last Filed: 10/12/17 05:58> - General Chief Complaint: Nausea/Vomiting Stated Complaint: VOMITING Time Seen by Provider: 10/12/17 03:48 Past History - Past Medical History COPD: No - Surgical History Abdominal Surgery: Yes (LT ovary removed) Cholecystectomy: Yes - Immunization History Immunization Up to Date: No - Suicide/Smoking/Psychosocial Hx Smoking Status: No Smoking History: Never smoked Years of Tobacco Use: 0 Have you smoked in the past 12 months: No Number of Cigarettes Smoked Daily: 0 Cigars Per Day: 0 Information on smoking cessation initiated: No Hx Alcohol Use: No Drug/Substance Use Hx: No Substance Use Type: None <Nick Bustillo - Last Filed: 10/12/17 05:42> <Carlos Alberto Harrison - Last Filed: 10/12/17 05:58> - Past Medical History Allergies/Adverse Reactions: Allergies Allergy/AdvReac Type Severity Reaction Status Date / Time No Known Drug Allergies Allergy Verified 10/12/17 05:36 SEAFOOD AdvReac Vomiting Uncoded 10/12/17 05:36 Home Medications: Ambulatory Orders Doxycycline Hyclate 100 mg PO BID #28 capsule 09/26/17 Ciprofloxacin HCl [Cipro] 500 mg PO BID 7 Days #14 tablet 10/09/17 Metronidazole [Flagyl -] 500 mg PO TID #7 tablet 10/09/17 Omeprazole 20 mg PO BID #30 tablet. 10/09/17 Ondansetron [Zofran *Odt*] 8 mg SL BID PRN #14 od.tablet 10/09/17 Review of Systems - Review of Systems Comments:: 10/12/17 05:53 "GENERAL/CONSTITUTIONAL: No fever or chills. No weakness. HEAD, EYES, EARS, NOSE AND THROAT: No change in vision. No ear pain or discharge. No sore throat. CARDIOVASCULAR: No chest pain or shortness of breath. RESPIRATORY: No cough, wheezing, or hemoptysis. GASTROINTESTINAL: +Nausea. +Vomiting. + epigastric pain. No diarrhea or constipation. GENITOURINARY: No dysuria, frequency, or change in urination. MUSCULOSKELETAL: No joint or muscle swelling or pain. No neck or back pain. SKIN: No rash NEUROLOGIC: No headache, vertigo, loss of consciousness, or change in strength/ sensation. ENDOCRINE: No increased thirst. No abnormal weight change. HEMATOLOGIC/LYMPHATIC: No anemia, easy bleeding, or history of blood clots. ALLERGIC/IMMUNOLOGIC: No hives or skin allergy. """ <Nick Bustillo - Last Filed: 10/12/17 05:42> *Physical Exam - Vital Signs Last Vital Signs Temp Pulse Resp BP Pulse Ox 98.3 F 96 H 20 119/73 98 10/12/17 05:34 10/12/17 05:34 10/12/17 05:34 10/12/17 05:34 10/12/17 05:34 - Physical Exam Comments: 10/12/17 05:53 "GENERAL: Awake, alert, and fully oriented, in no acute distress HEAD: No signs of trauma EYES: PERRLA, EOMI, sclera anicteric, conjunctiva clear ENT: Auricles normal inspection, hearing grossly normal, nares patent, oropharynx clear without exudates. Moist mucosa NECK: Nontender, no stepoffs, Normal ROM, supple, no lymphadenopathy, JVD, or masses LUNGS: Breath sounds equal, clear to auscultation bilaterally. No wheezes, and no crackles HEART: Regular rate and rhythm, normal S1 and S2, no murmurs, rubs or gallops ABDOMEN: Soft, nontender, normoactive bowel sounds. No guarding, no rebound. No masses EXTREMITIES: Normal range of motion, no edema. No clubbing or cyanosis. No cords, erythema, or tenderness NEUROLOGICAL: Cranial nerves II through XII intact. 5/5 strength and sensation in all extremities, Normal speech, normal gait SKIN: Warm, Dry, normal turgor, no rashes or lesions noted." <Nick Bustillo - Last Filed: 10/12/17 05:42> - Vital Signs Last Vital Signs Temp Pulse Resp BP Pulse Ox 98.3 F 96 H 20 119/73 98 10/12/17 05:34 10/12/17 05:34 10/12/17 05:34 10/12/17 05:34 10/12/17 05:34 <Carlos Alberto Harrison - Last Filed: 10/12/17 05:58> Medical Decision Making - Medical Decision Making 10/12/17 05:43 27 F with epigastric pain and vomiting x 1 day. Likely gastritis vs PUD. Also consider pancreatitis. Pt is on cipro for possible colitis and may have gastritis 2/2 cipro use. Pt with completely benign abdominal exam in ER today. - Labs, lipase - UA, UPT - GI cocktail - Reassess <Nick Bustillo - Last Filed: 10/12/17 05:42> *DC/Admit/Observation/Transfer <Nick Bustillo - Last Filed: 10/12/17 05:42> - Attestations Scribe Attestion: 10/12/17 05:58 Documentation prepared by Carlos Alberto Harrison, acting as medical asst for Nick Bustillo MD. <Carlos Alberto Harrison - Last Filed: 10/12/17 05:58> - Discharge Dispostion Condition at time of disposition: Fair - Referrals Referrals: Carlee Maravilla MD [Primary Care Provider] - - Patient Instructions - Post Discharge Activity
[2017-10-12] MEDS ORDERED: morphine CARPU-JECT 8 MG/1 ML DISP.SYRIN ONE (06:40)
[2017-10-12] MEDS ORDERED: MAG HYDROX/AL HYDROX/SIMETH 30 ML UNIT-DOSE CUP ONE (06:41)
[2017-10-12 07:37] LABS: BASO % 0.5 % (0-2.0); EOS % 0.1 % (0-4.5); LYMPH # 1.6 (8-40); MCH 29.6 pg (25.7-33.7); MCHC 33.3 g/dl (32.0-36.0); MEAN CELL VOLUME 88.7 fl (80-96); MEAN PLT VOLUME 8.5 fl (7.5-11.1); MONO # 0.4 # (3.8-10.2); NEUT # 6.2 # (42.8-82.8); NEUT % 75.3 % (42.8-82.8); PLATELET COUNT 206 K/MM3 (134-434); RDW 13.5 % (11.6-15.6); WHITE BLOOD COUNT 8.3 K/mm3 (4.0-10.0)
[2017-10-12 08:07] LABS: ALBUMIN 3.5 g/dl (3.4-5.0); ALK PHOS 74 U/L (45-117); ANION GAP 11 (8-16); BILIRUBIN,TOTAL 0.6 mg/dL (0.2-1.0); CALCIUM 8.8 mg/dL (8.5-10.1); CO2 24 mmol/L (21-32); CREATININE 0.6 mg/dL (0.55-1.02); GLUCOSE,RANDOM 104 mg/dL (74-106); SGOT/AST 15 U/L (15-37); SGPT/ALT 22 U/L (12-78); TOT PROT 6.8 g/dl (6.4-8.2)
[2017-10-12 09:17] LABS: URINE APPEARANCE CLEAR; URINE BILIRUBIN NEGATIVE (NEGATIVE); URINE BLOOD NEGATIVE (NEGATIVE); URINE COLOR DKYELLOW; URINE GLUCOSE (UA) NEGATIVE (NEGATIVE); URINE KETONE 2+ (NEGATIVE); URINE LEUK ESTERASE TRACE (NEGATIVE); URINE NITRITE NEGATIVE (NEGATIVE); URINE PROTEIN NEGATIVE (NEGATIVE); URINE UROBILINOGEN NEGATIVE mg/dL (0.2-1.0)
[2017-10-12 09:24] LABS: URINE MUCUS MANY; URINE RBC 43 /hpf (0-3); URINE WBC 3 /hpf (3-5)
[2017-10-12] MEDS ORDERED: ONDANSETRON 4 MG/2 ML VIAL IVPUSH ONE (10:01)
[2017-10-12] MEDS ORDERED: ONDANSETRON 4 MG/2 ML VIAL ONE (10:22)
--- NOTE | 2017-10-12 10:31 | PDOC ---
*Physical Exam - Vital Signs Last Vital Signs Temp Pulse Resp BP Pulse Ox 98.3 F 96 H 20 119/73 98 10/12/17 05:34 10/12/17 05:34 10/12/17 05:34 10/12/17 05:34 10/12/17 05:34 ED Treatment Course - LABORATORY CBC & Chemistry Diagram: 10/12/17 07:21 10/12/17 07:21 - ADDITIONAL ORDERS Additional order review: Laboratory Results 10/12/17 10/12/17 09:06 07:21 Sodium 141 Potassium 3.3 L Chloride 106 Carbon Dioxide 24 Anion Gap 11 BUN 8 Creatinine 0.6 Creat Clearance w eGFR > 60 Random Glucose 104 Calcium 8.8 Total Bilirubin 0.6 AST 15 ALT 22 Alkaline Phosphatase 74 Total Protein 6.8 Albumin 3.5 Lipase 80 Urine Color Dkyellow Urine Appearance Clear Urine pH 6.0 Ur Specific [place] 1.027 Urine Protein Negative Urine Glucose (UA) Negative Urine Ketones 2+ H Urine Blood Negative Urine Nitrite Negative Urine Bilirubin Negative Urine Urobilinogen Negative Urine WBC (Auto) 3 Urine RBC (Auto) 43 Ur Epithelial Cells Rare Urine Mucus Many Urine HCG, Qual Negative 10/12/17 07:21 RBC 4.37 MCV 88.7 MCHC 33.3 RDW 13.5 MPV 8.5 Neutrophils % 75.3 Lymphocytes % 19.7 Monocytes % 4.4 Eosinophils % 0.1 Basophils % 0.5 - Medications Given in the ED: ED Medications Discontinued Medications Generic Name Dose Route Start Last Admin Trade Name Srinivasq PRN Reason Stop Dose Admin Al Hydroxide/Mg Hydroxide 30 ml 10/12/17 05:35 10/12/17 07:00 Mylanta Oral Suspension - PO 10/12/17 05:36 30 ml ONCE ONE Administration Famotidine/Sodium Chloride 20 mg in 50 mls @ 100 mls/hr 10/12/17 05:35 07:00 Pepcid 20 Mg Premixed Ivpb - IVPB 10/12/17 06:04 100 mls/hr ONCE ONE Administration Sodium Chloride 1,000 mls @ 1,000 mls/hr 10/12/17 05:35 10/12/17 07:00 Normal Saline - IV 10/12/17 06:34 1,000 mls/hr ASDIR STA Administration Morphine Sulfate 4 mg 10/12/17 05:35 10/12/17 07:00 Morphine Injection - IVPUSH 10/12/17 05:36 4 mg ONCE ONE Administration Ondansetron HCl 4 mg 10/12/17 10:01 10/12/17 10:28 Zofran Injection IVPUSH 10/12/17 10:02 4 mg ONCE ONE Administration Medical Decision Making - Medical Decision Making 10/12/17 10:29 Pt was endorsed to me by Dr. Bustillo at 7am shift change. Presented with epigastric pain, vomiting x1 day. She was recently started on cipro for poss colitis. On exam at present, she has mild epigastric tenderness (reports prior history of gallbladder removal), appears pale and uncomfortable. Will give additional antiemetics and IVF and continue to monitor. 10/12/17 13:37 Pt reports improvement, able to tolerate PO challenge. I reviewed CT from previous admission, overread shows no acute findings. Will discontinue cipro. *DC/Admit/Observation/Transfer Diagnosis at time of Disposition: Nausea and vomiting Qualifiers: Vomiting type: unspecified Vomiting Intractability: non-intractable Qualified Code(s): R11.2 - Nausea with vomiting, unspecified - Discharge Dispostion Disposition: HOME Condition at time of disposition: Improved Admit: No - Referrals Referrals: Carlee Maravilla MD [Primary Care Provider] - - Patient Instructions - Post Discharge Activity
[2017-10-12] MEDS ORDERED: METOCLOPRAMIDE HCL INJECTION 10 MG/2 ML VIAL IVPB ONE (12:01)
[2017-10-12] MEDS ORDERED: METOCLOPRAMIDE HCL INJECTION 10 MG/2 ML VIAL ONE (12:22)
[2017-10-12 13:55] VITALS: BP 115/63; PULSE 71; TEMP 98
[2017-10-12 14:17] LABS: URINE LEUK ESTERASE Negative (NEGATIVE)
== END 2017-10-12 13:55 | disposition home or self-care (01) ==
LOC: JER 03:43
PROC: 3E033GC Introduction of Other Therapeutic Substance into Peripheral Vein, Percutaneous Approach (ICD-10-PCS; principal; 2017-10-12)
PROC: 3E033NZ Introduction of Analgesics, Hypnotics, Sedatives into Peripheral Vein, Percutaneous Approach (ICD-10-PCS; 2017-10-12)
PROC: 3E0337Z Introduction of Electrolytic and Water Balance Substance into Peripheral Vein, Percutaneous Approach (ICD-10-PCS; 2017-10-12)
DX: R11.2 Nausea with vomiting, unspecified (principal)
CPT/HCPCS: 36415; 80053; 81003; 81015; 83690; 84703; 85025; 96361; 96365; 96375; 99283-25

== ENCOUNTER 2017-12-08 10:58 | Emergency (ER) | payer OTHER ==
[2017-12-08 11:17] VITALS: BP 125/64; PULSE 64; TEMP 98.1; BMI 38.7
--- NOTE | 2017-12-08 11:37 | PDOC ---
History of Present Illness <Madai Valenzuela - Last Filed: 12/08/17 15:55> - General History Source: Patient Exam Limitations: No Limitations - History of Present Illness Initial Comments: 12/08/17 15:58 The patient is a 27-year-old female, with no significant past medical history, who presents to the ED with one week of worsening right-sided abdominal pain. The patient states that she visited her PCP where she had imaging done that revealed a cyst on her right ovary. She was sent to Dr. Fregoso office to follow-up. The patient was seen by the [facility] and was told to return to the office for a follow-up visit. The patient reported to the ED today because her pain has progressively worsened; she has been taking ibuprofen for the pain but with minimal relief of her symptoms. The patient reports seeing a small amount of blood after wiping herself. She states that she has not had her menstrual period for 4 months now. She denies being on any contraceptives. The patient denies any fever, chills, nausea, vomiting, or diarrhea. She denies dysuria. She denies any recent travel. Allergies: NKDA; seafood. Surgical Hx: Gallbladder removal surgery Social Hx: Patient denies any tobacco or drug use. PCP: Dr. Bacon <Liza Conde - Last Filed: 12/08/17 16:03> - General Chief Complaint: Pain, Acute Stated Complaint: CYST/ RT SIDE, BACK PAIN Time Seen by Provider: 12/08/17 11:37 Past History - Past Medical History COPD: No Other medical history: DENIES. - Surgical History Abdominal Surgery: Yes (LT ovary removed) Cholecystectomy: Yes - Immunization History Immunization Up to Date: No - Suicide/Smoking/Psychosocial Hx Smoking Status: No Smoking History: Never smoked Years of Tobacco Use: 0 Have you smoked in the past 12 months: No Number of Cigarettes Smoked Daily: 0 Cigars Per Day: 0 Hx Alcohol Use: No Drug/Substance Use Hx: No Substance Use Type: None <Madai Valenzuela - Last Filed: 12/08/17 15:55> <Liza Conde - Last Filed: 12/08/17 16:03> - Past Medical History Allergies/Adverse Reactions: Allergies Allergy/AdvReac Type Severity Reaction Status Date / Time No Known Drug Allergies Allergy Verified 12/08/17 11:14 SEAFOOD AdvReac Vomiting Uncoded 12/08/17 11:14 Home Medications: Ambulatory Orders Ondansetron HCl [Zofran] 4 mg PO BID PRN #14 tablet 12/08/17 Ranitidine HCl [Zantac] 150 mg PO DAILY #30 tablet 12/08/17 Sucralfate [Carafate -] 1 gm PO TID PRN #30 tablet 12/08/17 traMADol HCL [Ultram -] 50 mg PO Q8H #15 tablet MDD 3 12/08/17 Review of Systems - Review of Systems Able to Perform ROS?: Yes Comments:: 12/08/17 16:00 GENERAL/CONSTITUTIONAL: No: fever, chills, weakness, loss of appetite. HEAD, EYES, EARS, NOSE AND THROAT: No: change in vision, ear pain, discharge, sore throat, throat swelling. CARDIOVASCULAR: No: chest pain, lightheadedness, palpitations, syncope RESPIRATORY: No: cough, shortness of breath, wheezing, hemoptysis, stridor. GASTROINTESTINAL: Yes: abdominal pain, constipation. No: nausea, vomiting, diarrhea, rectal bleeding. GENITOURINARY: (+)Vaginal discharge, small amount of vaginal bleeding. No: dysuria, hematuria, frequency, urgency, flank pain. MUSCULOSKELETAL: No: back pain, neck pain, joint pain, muscle swelling or pain SKIN AND BREASTS: No: lesions, pallor, rash or easy bruising. NEUROLOGIC: No: headache, vertigo, paresthesias, weakness ENDOCRINE: No: unexplained weight gain or loss HEMATOLOGIC/LYMPHATIC: No: anemia, easy bleeding, swelling nodes <Liza Conde - Last Filed: 12/08/17 16:03> *Physical Exam - Vital Signs Last Vital Signs Temp Pulse Resp BP Pulse Ox 98.1 F 64 19 125/64 100 12/08/17 11:14 12/08/17 11:14 12/08/17 11:14 12/08/17 11:14 12/08/17 11:14 <Madai Valenzuela - Last Filed: 12/08/17 15:55> - Vital Signs Last Vital Signs Temp Pulse Resp BP Pulse Ox 98.1 F 64 19 125/64 100 12/08/17 11:14 12/08/17 11:14 12/08/17 11:14 12/08/17 11:14 12/08/17 11:14 - Physical Exam Comments: 12/08/17 16:01 GENERAL: The patient is in no acute distress. HEAD: Normal with no signs of trauma. EYES: PERRLA, EOMI, sclera anicteric, conjunctiva clear. ENT: Ears normal, nares patent, oropharynx clear without exudates. Moist mucous membranes. NECK: Normal range of motion, supple without lymphadenopathy, JVD, or masses. LUNGS: Breath sounds equal, clear to auscultation bilaterally. No wheezes, and no crackles. HEART: Regular rate and rhythm, normal S1 and S2 without murmur, rub or gallop. ABDOMEN: Soft, nontender, normoactive bowel sounds. No guarding, no rebound. EXTREMITIES: Normal range of motion, no edema. No clubbing or cyanosis. No erythema, or tenderness. NEUROLOGICAL: Cranial nerves II through XII grossly intact. Normal speech. No focal neurological deficits. MUSCULOSKELETAL: Back non-tender to palpation, no CVA tenderness SKIN: Warm, Dry, normal turgor, no rashes or lesions noted. Pelvic Exam: No CMT tenderness No adnexal tenderness or masses palpated Physiological discharge noted <Liza Conde - Last Filed: 12/08/17 16:03> ED Treatment Course - LABORATORY CBC & Chemistry Diagram: 12/08/17 11:52 12/08/17 11:52 <Madai Valenzuela - Last Filed: 12/08/17 15:55> - LABORATORY CBC & Chemistry Diagram: 12/08/17 11:52 12/08/17 11:52 - ADDITIONAL ORDERS Additional order review: Laboratory Results 12/08/17 11:52 Sodium 142 Potassium 3.9 Chloride 107 Carbon Dioxide 28 Anion Gap 7 L BUN 9 Creatinine 0.5 L Creat Clearance w eGFR > 60 Random Glucose 96 Calcium 8.7 Total Bilirubin 0.7 AST 14 L ALT 15 Alkaline Phosphatase 78 Total Protein 6.7 Albumin 3.4 Beta HCG, Quant < 1.0 12/08/17 11:52 RBC 4.41 MCV 90.3 MCHC 33.1 RDW 13.5 MPV 8.2 Neutrophils % 71.5 Lymphocytes % 20.9 Monocytes % 4.7 Eosinophils % 2.3 D Basophils % 0.6 - Medications Given in the ED: ED Medications Discontinued Medications Generic Name Dose Route Start Last Admin Trade Name Dagmar PRN Reason Stop Dose Admin Acetaminophen/Codeine Phosphate 1 tab 12/08/17 15:02 12/08/17 15:21 Tylenol # 3 - PO 12/08/17 15:03 1 tab ONCE ONE Administration <Liza Conde - Last Filed: 12/08/17 16:03> Medical Decision Making - Medical Decision Making 12/08/17 14:05 Ms. Camejo is a 27-year-old female presented to emergency department with a complaint of worsening right abdominal pain. Patient states her symptoms have been present for 1 week and worsening No fevers or chills Pt was seen by her pmd who discovered her cyst She was sent to Dr Mendez's office Pt seen by the [facility] and told to return to the office for a follow up visit Pt states her pain has been worsening and is now severe Pt states that it hurts so bad, that she has difficulty having a bowel movement Laboratory Tests 12/08/17 12/08/17 11:52 11:52 WBC 6.0 Hgb 13.2 Hct 39.8 Plt Count 244 Sodium 142 Potassium 3.9 Chloride 107 Carbon Dioxide 28 BUN 9 Creatinine 0.5 L Random Glucose 96 Beta HCG, Quant < 1.0 Ultrasound: 12/08/17 14:14 Normal appearing uterus and endometrial thickness. Left ovary was surgically removed in 2005. Large right ovary containing 2 adjacent simple cyst versus a large complex cyst with a thick septation the total measurement of which is 6.7 x 3.2 cm. Follow-up ultrasound in the first week of the next menstrual cycle is recommended. Normal arterial and venous flow in the right ovary without evidence of torsion Patient reports also right-sided chest pain. PERC negative area 12/08/17 14:17 Call placed to [facility] Case reviewed with CHARLEY Alvarez in the office (who saw this patient on 10/31) at that time cyst was 5cm It is now 6.7 DINKEY MECHANIC will speak with Dr Garcia and call me back morphine ordered 12/08/17 14:19 12/08/17 15:42 Patient has refused IV morphine. She requests Tylenol No. 3. Case reviewed with Dr. Garcia Pt can be discharged She can make an appointment for her surgery TODAY in the office Pt states she has been using Motrin three times per day, sometimes without food Will give carafate, protonix, zofran and Ultram Clinical impression: right ovarian cyst, initial presentation 12/08/17 15:46 <Madai Valenzuela - Last Filed: 12/08/17 15:55> *DC/Admit/Observation/Transfer - Discharge Dispostion Admit: No <Madai Valenzuela - Last Filed: 12/08/17 15:55> - Attestations Scribe Attestion: 12/08/17 16:03 Documentation prepared by Liza Conde, acting as medical dosimetrist for Madai Valenzuela MD. <Liza Conde - Last Filed: 12/08/17 16:03> Diagnosis at time of Disposition: Ovarian cyst Qualifiers: Laterality: right Qualified Code(s): N83.201 - Unspecified ovarian cyst, right side - Discharge Dispostion Disposition: HOME Condition at time of disposition: Stable - Prescriptions Prescriptions: Ondansetron HCl [Zofran] 4 mg PO BID PRN #14 tablet PRN Reason: Nausea Ranitidine HCl [Zantac] 150 mg PO DAILY #30 tablet Sucralfate [Carafate -] 1 gm PO TID PRN #30 tablet PRN Reason: gastritis pain traMADol HCL [Ultram -] 50 mg PO Q8H #15 tablet MDD 3 - Referrals Referrals: Carlee Maravilla MD [Primary Care Provider] - - Patient Instructions Printed Discharge Instructions: DI for Ovarian Cyst Additional Instructions: Ms Camejo Thanks for coming in to the ER today Dr Garcia is expecting you to come to the office/ or call to make your appointment Please take medications as prescribed Please return to the ER for any other concerns or complaints
[2017-12-08 12:31] LABS: BASO % 0.6 % (0-2.0); EOS % 2.3 % (0-4.5); HEMATOCRIT 39.8 % (32.4-45.2); HEMOGLOBIN 13.2 GM/dL (10.7-15.3); LYMPH % 20.9 % (8-40); MCH 29.8 pg (25.7-33.7); MCHC 33.1 g/dl (32.0-36.0); MEAN CELL VOLUME 90.3 fl (80-96); MEAN PLT VOLUME 8.2 fl (7.5-11.1); MONO % 4.7 % (3.8-10.2); NEUT % 71.5 % (42.8-82.8); PLATELET COUNT 244 K/MM3 (134-434); RBC 4.41 M/mm3 (3.60-5.2); RDW 13.5 % (11.6-15.6)
[2017-12-08 12:52] LABS: ALBUMIN 3.4 g/dl (3.4-5.0); ALK PHOS 78 U/L (45-117); ANION GAP 7 (8-16); BILIRUBIN,TOTAL 0.7 mg/dL (0.2-1.0); BLOOD UREA NITROGEN 9 mg/dL (7-18); CALCIUM 8.7 mg/dL (8.5-10.1); CHLORIDE 107 mmol/L (98-107); CO2 28 mmol/L (21-32); CREATININE 0.5 mg/dL (0.55-1.02); GLUCOSE,RANDOM 96 mg/dL (74-106); POTASSIUM 3.9 mmol/L (3.5-5.1); SGOT/AST 14 U/L (15-37); SGPT/ALT 15 U/L (12-78); SODIUM 142 mmol/L (136-145); TOT PROT 6.7 g/dl (6.4-8.2)
[2017-12-08] MEDS ORDERED: morphine CARPU-JECT 4 MG/1 ML DISP.SYRIN IVPUSH ONE (14:18)
[2017-12-08] MEDS ORDERED: ACETAMINOPHEN WITH CODEINE 300MG/30MG TABLET PO ONE (15:02)
[2017-12-08] MEDS ORDERED: ACETAMINOPHEN WITH CODEINE 300MG/30MG TABLET ONE (15:16)
== END 2017-12-08 16:03 | disposition home or self-care (01) ==
LOC: JER 10:58
DX: N83.201 Unspecified ovarian cyst, right side (principal)
CPT/HCPCS: 36415; 76830-TC; 80053; 84702; 85025; 99282-25

== ENCOUNTER 2017-12-11 05:23 | Day surgery (SDC) | payer OTHER ==
[2017-12-10 10:25] VITALS: BMI 38.1
[2017-12-11] MEDS ORDERED: MIDAZOLAM HCL 2 MG/2 ML SINGLE DOSE VIAL ONE (07:51)
[2017-12-11] MEDS ORDERED: ROCURONIUM BROMIDE 50 MG/5 ML VIAL ONE (07:51)
[2017-12-11] MEDS ORDERED: PROPOFOL 20 ML ONE ×2 (07:51)
[2017-12-11] MEDS ORDERED: LIDOCAINE HCL/PF 2% SDV 5ML VIAL ONE (07:53)
--- NOTE | 2017-12-11 08:07 | HP ---
History & Physical Update - History History: No Change - Physical Physical: No Change - Assessment Assessment: No Change - Plan Plan: No Change
[2017-12-11] MEDS ORDERED: DEXAMETHASONE SOD PHOSPHATE 4 MG/1 ML VIAL ONE (08:17)
[2017-12-11] MEDS ORDERED: NEOSTIGMINE METHYLSULFATE 0.5 MG/ML - 10 ML MDV ONE (09:04)
[2017-12-11] MEDS ORDERED: GLYCOPYRROLATE 0.2 MG/1 ML VIAL ONE (09:04)
[2017-12-11] MEDS ORDERED: BUPIVACAINE HCL/PF 0.5% (5MG/ML) 10 ML VIAL IJ ONE (09:08)
[2017-12-11] MEDS ORDERED: ONDANSETRON 4 MG/2 ML VIAL IVPUSH PRN (09:28)
[2017-12-11] MEDS ORDERED: PROMETHAZINE HCL 25 MG/1 ML VIAL IVPB PRN (09:28)
[2017-12-11] MEDS ORDERED: LACTATED RINGERS SOLUTION 1,000 ML IV SCH (09:30)
--- NOTE | 2017-12-11 09:49 | OP ---
Operative Note - Note: Operative Date: 12/11/17 Pre-Operative Diagnosis: Painful Right ovarian cyst Operation: Robotic assisted laparoscopic right ovarian cystectomy Post-Operative Diagnosis: Same as Pre-op Surgeon: Keeley Bedoya Stage Technician: Sunni Hein Anesthesiologist/TAX COMMISSIONER: Tamir Glover Anesthesia: General Specimens Removed: Right ovarian cyst Estimated Blood Loss (mls): 5 Drains, Volume Out (mls): 100 (espino) Fluid Volume Replaced (mls): 300 Operative Report Dictated: Yes
--- NOTE | 2017-12-11 09:50 | SURG ---
Surgery Office Support Assistant Note Office Support Assistant: Sunni Hein PA-C Date of Service: 12/11/17 Diagnosis: Painful right ovarian cyst Procedure: Robotic assisted laparoscopic right ovarian cystectomy I was present for the entirety of the operative procedure. For further detail, please refer to operative report. Visit type - Case Type Case Type: Scheduled Admission - Emergency Emergency Visit: No - New patient This patient is new to me today: Yes Date on this admission: 12/11/17
[2017-12-11] MEDS ORDERED: ACETAMINOPHEN 325 MG TABLET (FP) PO ONE ×2 (10:00)
[2017-12-11] MEDS ORDERED: oxyCODONE HCL 5 MG TABLET PO ONE ×2 (10:00)
--- NOTE | 2017-12-11 10:03 | OP ---
Operative Note - Note: Operative Date: 12/11/17 Pre-Operative Diagnosis: Right ovarian cyst. pelvic pain Operation: Robotic laparosocpic right ovarian cystectomy Post-Operative Diagnosis: Same as Pre-op Surgeon: Keeley Bedoya Anesthesia: General Estimated Blood Loss (mls): 5 Operative Report Dictated: Yes
[2017-12-11 10:42] VITALS: TEMP 97.7
[2017-12-11] MEDS ORDERED: oxyCODONE HCL 5 MG TABLET ONE (12:01)
[2017-12-11 15:07] VITALS: BP 119/57; PULSE 71
--- NOTE | 2017-12-14 16:11 | PATH ---
Surgical Pathology Report Patient Name: TRINA GILLESPIE [facility]. Rec. #: [id number] /Age/Gender: 1990 (Age: 27) / F Account: [id number] Location: [facility] SURGICAL Taken: 12/11/2017 Received: 12/11/2017 Reported: 12/14/2017 Physicians: Keeley Bedoya M.D. Specimen(s) Received RIGHT CYS WALL Clinical History Ovarian cyst Final Diagnosis CYST WALL, RIGHT, ROBOTIC LAPAROSCOPIC OVARIAN CYSTECTOMY: FRAGMENTS OF CYST WALL CONSISTENT WITH SEROUS CYSTADENOMA. SCANT OVARIAN PARENCHYMA PRESENT. Electronically Signed Madelyn Hooker M.D. Gross Description Received in formalin labeled "right cyst wall," is a 2.3 x 1.8 x 0.3 cm aggregate of correia-pink soft tissue fragments, consistent with a disrupted cyst. The specimen is entirely submitted in one cassette. /12/11/201712/11/2017
== END 2017-12-11 13:15 | disposition home or self-care (01) ==
LOC: JASU-SURG 05:23
PROVIDERS: ATTEND Obstetrics & Gynecology
PROC: 0UB04ZZ Excision of Right Ovary, Percutaneous Endoscopic Approach (ICD-10-PCS; principal; 2017-12-11 08:00)
DX: N83.201 Unspecified ovarian cyst, right side (principal)
CPT/HCPCS: 58662; S2900; 88305-TC

== ENCOUNTER 2018-05-12 05:37 | Day surgery (SDC) | payer OTHER ==
[2018-05-06 16:46] VITALS: BMI 37.8
[2018-05-12] MEDS ORDERED: MIDAZOLAM HCL 2 MG/2 ML SINGLE DOSE VIAL ONE (07:43)
--- NOTE | 2018-05-12 07:56 | HP ---
History & Physical Update - History History: No Change - Physical Physical: No Change - Assessment Assessment: No Change - Plan Plan: No Change (full H&P in chart from 04/14/2018)
[2018-05-12] MEDS ORDERED: ROCURONIUM BROMIDE 50 MG/5 ML VIAL ONE (07:59)
[2018-05-12] MEDS ORDERED: LIDOCAINE HCL/PF 2% SDV 5ML VIAL ONE (07:59)
[2018-05-12] MEDS ORDERED: PROPOFOL 20 ML ONE ×2 (07:59)
[2018-05-12] MEDS ORDERED: oxyCODONE HCL 5 MG TABLET PO PRN (08:10)
[2018-05-12] MEDS ORDERED: ONDANSETRON 4 MG/2 ML VIAL IVPUSH PRN (08:10)
[2018-05-12] MEDS ORDERED: IBUPROFEN 800 MG/8 ML IJ IVPB PRN (08:10)
[2018-05-12] MEDS ORDERED: LACTATED RINGERS SOLUTION 1,000 ML IV SCH (08:15)
[2018-05-12] MEDS ORDERED: NEOSTIGMINE METHYLSULFATE 0.5 MG/ML - 10 ML MDV ONE (08:49)
[2018-05-12] MEDS ORDERED: GLYCOPYRROLATE 0.2 MG/1 ML VIAL ONE (08:50)
[2018-05-12] MEDS ORDERED: DEXAMETHASONE SOD PHOSPHATE 4 MG/1 ML VIAL ONE (08:50)
--- NOTE | 2018-05-12 09:24 | OP ---
Operative Note - Note: Operative Date: 05/12/18 Pre-Operative Diagnosis: voluntary sterilization Operation: laparoscopic right salpingectomy and right ovarian cystectomy Findings: normal right fallopian tube, right corpus luteal cyst absent left fallopian tube and ovary Surgeon: Tyra Carlos Cement Car Dumper: Yanira Gamino Anesthesiologist/SPENT GRAIN DRYER: Alexandra Christian Anesthesia: General Specimens Removed: right fallopian tube, right ovarian cyst Estimated Blood Loss (mls): 10 Operative Report Dictated: Yes
--- NOTE | 2018-05-12 10:04 | SURG ---
Surgery [employer] Set Up Technician Note [employer] Set Up Technician: Yanira Gamino PA-C Date of Service: 05/12/18 Diagnosis: voluntary sterilization Procedure: laparoscopic right salpingectomy and right ovarian cystectomy I was present for the entirety of the operative procedure. For further detail, please refer to operative report. Visit type - Case Type Case Type: Scheduled - Emergency Emergency Visit: No - New patient This patient is new to me today: Yes Date on this admission: 05/12/18
[2018-05-12] MEDS ORDERED: ONDANSETRON 4 MG/2 ML VIAL ONE (10:44)
--- NOTE | 2018-05-12 10:56 | OP ---
DATE OF OPERATION: DATE OF DICTATION: 05/12/2018 PREOPERATIVE DIAGNOSIS: Desire for permanent sterilization and pelvic pain. POSTOPERATIVE DIAGNOSIS: Desire for permanent sterilization and pelvic pain. PROCEDURE: Right salpingectomy and right ovarian cystectomy. SURGEON: Tyra Carlos DO PAPER COATING MACHINE OPERATOR: MIKE Matos ANESTHESIA: General by Dr. Alexandra Christian COMPLICATIONS: None. ESTIMATED BLOOD LOSS: 10 mL. DISPOSITION: Stable to PACU. Sponge, needle, and instrument count were reported to be correct. BRIEF HISTORY: The patient is a 27-year-old female who had been seen in the office with complaints of pelvic pain but also with desire for permanent sterilization. 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 After 6 months of counseling and repeat visitations in the office, the patient signed consents and expressed strong desire for sterilization. The patient signed consents for sterilization procedure in the office, and she was admitted to [facility] in the ambulatory surgery unit on May 12, 2018. Consents for the procedure were reconfirmed. DESCRIPTION OF PROCEDURE: The patient was taken back to the operating room where she was given general anesthesia and placed in the dorsal lithotomy position. A Huntley catheter was placed. She was prepped and draped in the usual sterile fashion, and a hard time-out was performed. A 5-mm skin incision was created in the umbilicus with a scalpel, and a Veress needle was inserted into the abdomen. The abdomen was insufflated with CO2 gas and then a 5-mm trocar was placed intra-abdominally at the umbilicus. A camera was then inserted and after confirmation of intra-abdominal placement, 2 bilateral lower quadrant ports were placed. The right fallopian tube was identified and traced to its fimbriated end and dissected off its attachments to the ovary, the mesosalpinx, and the uterus and removed through the 5-mm trocar site. A right corpus luteum cyst was appreciated, which was removed at this time using blunt dissection. Excellent hemostasis was achieved on the surgical sites on the right side. The patient has a known left oophorectomy, so the left ovary was not appreciated on inspection. No left fallopian tube was appreciated either; however, a possible left stump where the prior fallopian tube was present was noted, which was cauterized at this time. All surgical sites were noted to be hemostatic. The abdomen was then desufflated. All instruments and trocars were then removed from the abdomen. The skin was reapproximated using 4-0 Biosyn in a subcuticular fashion and then Dermabond skin glue. The patient was awoken from anesthesia and recovering in stable condition in the PACU at the time of this dictation. Sponge, needle, and instrument counts were reported to be correct. TYRA CARLOS DO /[id number]
[2018-05-12 13:04] VITALS: BP 107/69; PULSE 72; TEMP 98.6
--- NOTE | 2018-05-13 15:06 | PATH ---
Surgical Pathology Report Patient Name: TRINA GILLESPIE Med. Rec. #: [id number] /Age/Gender: 1990 (Age: 27) / F Account: [id number] Location: [facility] SURGICAL Taken: 05/12/2018 Received: 05/12/2018 Reported: 05/13/2018 Physicians: Tyra Carlos M.D. Specimen(s) Received A: RIGHT FALLOPIAN TUBE B: RIGHT OVARIAN CYST Clinical History Voluntary sterilization Final Diagnosis A. FALLOPIAN TUBE, RIGHT, PARTIAL EXCISION: FULL LUMINAL PORTION OF UNREMARKABLE FALLOPIAN TUBE. B. OVARIAN CYST, RIGHT, CYSTECTOMY: CONSISTENT WITH HEMORRHAGIC CORPUS LUTEUM CYST. Electronically Signed Madelyn Hooker M.D. Gross Description A. Received in formalin labeled "right fallopian tube," are 3 portions of a disrupted fallopian tube measuring 1.0, 2.0 and 3.5 cm in length. The longest portion displays attached fimbria. The outer surfaces are whitney purple and smooth. Sectioning reveals an unremarkable fallopian tube lumen. Geothermal Plant Manager sections are submitted in 2 cassettes as follows: 1-fimbria; 2-cross sections of fallopian tube. B. Received in formalin labeled "right ovarian cyst," are 2 correia-whitney soft tissue fragments measuring 0.6 and 1.5 cm in greatest dimension. The larger portion is bisected and the specimen is entirely submitted in one cassette. 05/12/201805/12/2018
== END 2018-05-12 13:05 | disposition home or self-care (01) ==
LOC: JASU-SURG 05:37
PROVIDERS: ATTEND Obstetrics & Gynecology
PROC: 0UB04ZZ Excision of Right Ovary, Percutaneous Endoscopic Approach (ICD-10-PCS; 2018-05-12)
PROC: 0UT54ZZ Resection of Right Fallopian Tube, Percutaneous Endoscopic Approach (ICD-10-PCS; principal; 2018-05-12 08:00)
DX: Z30.2 Encounter for sterilization (principal); N83.11 Corpus luteum cyst of right ovary; R10.2 Pelvic and perineal pain
CPT/HCPCS: 84703; 88302-TC; 88305-TC; 94760

== ENCOUNTER 2018-11-24 09:01 | Emergency (ER) | payer OTHER ==
[2018-11-24 09:09] VITALS: BMI 34.0
[2018-11-24] MEDS ORDERED: ACETAMINOPHEN 1000 MG/100 ML VIAL (NON FORMULARY) IVPB ONE (09:27)
[2018-11-24] MEDS ORDERED: ACETAMINOPHEN INJECTION 100 ML IVPB ONE (09:34)
--- NOTE | 2018-11-24 09:39 | PDOC ---
History of Present Illness <Liza Conde - Last Filed: 11/24/18 13:02> - History of Present Illness Initial Comments: 11/24/18 09:59 The patient is a 28-year-old female, with a past medical history of R oophorectomy (at the age of 14 due to cysts) and a L salpingectomy and cystectomy 3 months ago, who presents to the ED with left flank pain that began this morning. Patient reports that the pain is constant radiating to her left groin area, accompanied by hematuria, with no exacerbating or alleviating factors. States pain initially was tolerable and thus she proceeded to her appointment for an MRI today of her lower back. The MRI was ordered by Dr. Davidson for right-sided back pain w/u that she has been experiencing for a few months. She reports that her pain worsened after getting the MRI prompted her ED visit. LMP was 2 weeks ago. Denies taking any medications for pain. Denies hx similar pain, states this pain is different than her ovarian cyst pain. The patient denies any fever, chills, nausea, vomiting, or diarrhea. Denies vaginal DC. Denies any frequency, urgency, or hesitancy. Denies any chest pain or shortness of breath. Allergies: Sulfa, seafood. Surgical History: R oophorectomy, L salpingectomy and cystectomy Social History: None reported. PCP: Dr. Gopal Davidson <Javier Elizabeth - Last Filed: 11/24/18 14:14> - General Chief Complaint: Pain, Acute Stated Complaint: LT BACK PAIN Time Seen by Provider: 11/24/18 09:25 Past History <Liza Conde - Last Filed: 11/24/18 13:02> - Past Medical History Anemia: No Asthma: No Cancer: No Cardiac Disorders: No CVA: No COPD: No CHF: No Dementia: No Diabetes: No GI Disorders: No Disorders: No HTN: No Hypercholesterolemia: No Liver Disease: No Seizures: No Thyroid Disease: No - Surgical History Abdominal Surgery: Yes (LT ovary removed 2005 rt removed 12/14/17) Appendectomy: No Cardiac Surgery: No Cholecystectomy: Yes Lung Surgery: No Neurologic Surgery: No Orthopedic Surgery: No - Immunization History Immunization Up to Date: No - Suicide/Smoking/Psychosocial Hx Smoking Status: No Smoking History: Never smoked Years of Tobacco Use: 0 Have you smoked in the past 12 months: No Number of Cigarettes Smoked Daily: 0 Cigars Per Day: 0 Hx Alcohol Use: No Drug/Substance Use Hx: No Substance Use Type: None Hx Substance Use Treatment: No <Javier Elizabeth - Last Filed: 11/24/18 14:14> - Past Medical History Allergies/Adverse Reactions: Allergies Allergy/AdvReac Type Severity Reaction Status Date / Time Sulfa (Sulfonamide Allergy Verified 11/24/18 09:03 Antibiotics) sulfa Allergy Uncoded 11/24/18 09:03 SEAFOOD AdvReac Severe Vomiting Uncoded 11/24/18 09:03 Home Medications: Ambulatory Orders Unobtainable 11/24/18 Review of Systems - Review of Systems Comments:: 11/24/18 10:03 GENERAL/CONSTITUTIONAL: No fever or chills. No weakness. HEAD, EYES, EARS, NOSE AND THROAT: No change in vision. No ear pain or discharge. No sore throat. GASTROINTESTINAL: No nausea, vomiting, diarrhea or constipation. GENITOURINARY: (+)hematuria, left groin pain. Frequency. CARDIOVASCULAR: No chest pain or shortness of breath. RESPIRATORY: No cough, wheezing, or hemoptysis. MUSCULOSKELETAL: (+)Left flank pain. No joint swelling or pain. No neck pain. SKIN: No rash NEUROLOGIC: No headache, vertigo, loss of consciousness, or change in strength/ sensation. ENDOCRINE: No increased thirst. No abnormal weight change. HEMATOLOGIC/LYMPHATIC: No anemia, easy bleeding, or history of blood clots. ALLERGIC/IMMUNOLOGIC: No hives or skin allergy. <Javier Elizabeth - Last Filed: 11/24/18 14:14> *Physical Exam - Vital Signs Last Vital Signs Temp Pulse Resp BP Pulse Ox 75 18 108/65 98 11/24/18 09:03 11/24/18 09:03 11/24/18 09:03 11/24/18 09:03 <Liza Conde - Last Filed: 11/24/18 13:02> - Vital Signs Last Vital Signs Temp Pulse Resp BP Pulse Ox 75 18 108/65 98 11/24/18 09:03 11/24/18 09:03 11/24/18 09:03 11/24/18 09:03 - Physical Exam Comments: 11/24/18 10:37 GENERAL: Awake, alert, and fully oriented, appears uncomfortable EYES: EOMI, sclera anicteric, conjunctiva clear ENT: Moist mucosa LUNGS: Breath sounds equal, clear to auscultation bilaterally. No wheezes, and no crackles HEART: Regular rate and rhythm, normal S1 and S2, no murmurs, rubs or gallops ABDOMEN: Soft, nontender, normoactive bowel sounds. No guarding, no rebound. No masses : declines pelvic due to discomfort. No CVAT EXTREMITIES: Normal range of motion, no edema. No cords, erythema, or tenderness BACK: No midline spinal tenderness in cervical/thoracic/lumbar region NEUROLOGICAL: Normal speech, cranial nerves intact, equal strength and sensation b/l SKIN: Warm, Dry, normal turgor, no rashes or lesions noted. <Javier Elizabeth - Last Filed: 11/24/18 14:14> Moderate Sedation - Procedure Monitoring Vital Signs: Procedure Monitoring Vital Signs Temperature Pulse Rate 75 11/24/18 09:03 Respiratory Rate 18 11/24/18 09:03 Blood Pressure 108/65 11/24/18 09:03 O2 Sat by Pulse Oximetry (%) 98 11/24/18 09:03 <Liza Conde - Last Filed: 11/24/18 13:02> - Procedure Monitoring Vital Signs: Procedure Monitoring Vital Signs Temperature Pulse Rate 75 11/24/18 09:03 Respiratory Rate 18 11/24/18 09:03 Blood Pressure 108/65 11/24/18 09:03 O2 Sat by Pulse Oximetry (%) 98 11/24/18 09:03 <Javier Elizabeth - Last Filed: 11/24/18 14:14> ED Treatment Course - LABORATORY CBC & Chemistry Diagram: 11/24/18 09:45 11/24/18 09:50 - ADDITIONAL ORDERS Additional order review: Laboratory Results 11/24/18 09:35 Urine HCG, Qual Negative 11/24/18 09:45 RBC 4.09 MCV 89.8 MCHC 36.3 H RDW 13.5 MPV 8.4 Neutrophils % 63.8 Lymphocytes % 27.7 Monocytes % 5.5 Eosinophils % 2.2 Basophils % 0.8 - RADIOLOGY Radiology Studies Ordered: 11/24/18 10:15 Lumbar Spine MRI was reviewed by Dr. Elizabeth and over-read by Radiology. IMPRESSION. No evidence of disc herniation, spinal canal stenosis, neural foraminal stenosis. Normal signal intensity of the bone marrow. If patient's symptoms persist CT of the abdomen may be considered for further evaluation. 11/24/18 13:02 Abdomen/Pelvis CT was reviewed by Dr. Elizabeth and over-read by Radiology. Impression: No hydronephrosis. 2 mm calcification possibly overlying the distal left ureter. Clinical correlation advised. Small left lower pole renal calculus. Other findings as above. Clinical correlation advised. - Medications Given in the ED: ED Medications Discontinued Medications Generic Name Dose Route Start Last Admin Trade Name Freq PRN Reason Stop Dose Admin Acetaminophen 1,000 mg 11/24/18 09:27 11/24/18 09:49 Ofirmev Injection - IVPB 11/24/18 09:28 1,000 mg ONCE ONE Administration Ketorolac Tromethamine 30 mg 11/24/18 09:57 11/24/18 10:02 Toradol Injection - IVPUSH 11/24/18 09:58 30 mg ONCE ONE Administration <Liza Conde - Last Filed: 11/24/18 13:02> - LABORATORY CBC & Chemistry Diagram: 11/24/18 09:45 11/24/18 09:50 <Javier Elizabeth - Last Filed: 11/24/18 14:14> Medical Decision Making - Medical Decision Making 11/24/18 09:41 28yo F with hx L sided oopherectomy (age 14 for "cysts") and R salpingectomy and cystectomy 3 months ago for large ovarian cyst presents to the ED with sudden onset L sided flank pain radiating around to the groin. Vitals wnl (no temp recorded due to pt discomfort). Exam with no abd ttp, mild CVAT. Pt declines pelvic exam due to discomfort. DDx includes but not limited to renal colic vs ectopic preg vs diverticulitis. Plan: -UPT -UA/UCx -imaging -pain control -reassess 11/24/18 14:08 Labs unremarkable UA + for UTI, pt given 1G ceftriaxone CTAP with possible L sided distal ureter 2mm non obstructing stone which clinically makes sense with presentation Pain has completly resolved with toradol Pt eating tray of food, feels much better In light of improved pain, and non-obstructing stone, will treat UTI with keflex as outpt Strict return precautions given Pt requests DC home I discussed the physical exam findings, ancillary test results and final diagnoses with the patient. I answered all of the patient's questions. The patient was satisfied with the care received and felt comfortable with the discharge plan and treatment plan. The patient will call their primary care physician within 24 hours to arrange follow-up and will return to the Emergency Department with any new, persistent or worsening symptoms. <Javier Elizabeth - Last Filed: 11/24/18 14:14> *DC/Admit/Observation/Transfer - Attestations Scribe Attestion: 11/24/18 10:17 Documentation prepared by Liza Conde, acting as medical equipment repairer for Javier Elizabeth MD. <Liza Conde - Last Filed: 11/24/18 13:02> - Discharge Dispostion Decision to Admit order: No - Attestations Physician Attestion: 11/24/18 14:13 I, Dr. Javier Elizabeth MD, attest that this document has been prepared under my direction and personally reviewed by me in its entirety. I further attest, that it accurately reflects all work, treatment, procedures and medical decision -making performed by me. <Javier Elizabeth - Last Filed: 11/24/18 14:14> Diagnosis at time of Disposition: UTI (urinary tract infection), Renal colic on left side, Nausea - Discharge Dispostion Disposition: HOME Condition at time of disposition: Improved - Referrals Referrals: Gopal Davidson MD [Primary Care Provider] - - Patient Instructions Printed Discharge Instructions: Kidney Stones -- Adult Additional Instructions: Follow up with Dr. Davidson within 2-3 days. Take ibuprofen 600mg every 6 hours as needed for pain Drink plenty of fluids Return to the emergency department immediately if you have any new, worsening, or concerning symptoms such as fever greater than 100.4F, uncontrolled pain. Print Language: GU[place] - Post Discharge Activity
[2018-11-24 09:55] LABS: HCG,QUALITATIVE URINE Negative
[2018-11-24] MEDS ORDERED: KETOROLAC TROMETHAMINE 30 MG/1 ML VIAL IVPUSH ONE (09:57)
[2018-11-24] MEDS ORDERED: KETOROLAC TROMETHAMINE 30 MG/1 ML VIAL ONE (09:58)
[2018-11-24 09:59] LABS: BASO % 0.8 % (0-2.0); EOS % 2.2 % (0-4.5); HEMATOCRIT 36.7 % (32.4-45.2); HEMOGLOBIN 13.3 GM/dL (10.7-15.3); LYMPH % 27.7 % (8-40); MCH 32.6 pg (25.7-33.7); MCHC 36.3 g/dl (32.0-36.0); MEAN CELL VOLUME 89.8 fl (80-96); MEAN PLT VOLUME 8.4 fl (7.5-11.1); MONO % 5.5 % (3.8-10.2); NEUT % 63.8 % (42.8-82.8); PLATELET COUNT 249 K/MM3 (134-434); RBC 4.09 M/mm3 (3.60-5.2); RDW 13.5 % (11.6-15.6); WHITE BLOOD COUNT 6.2 K/mm3 (4.0-10.0)
[2018-11-24 10:15] LABS: INR 1.07 (0.83-1.09); PROTHROMBIN TIME (PATIENT) 12.6 SEC (9.7-13.0)
[2018-11-24 10:18] LABS: ACTIVATED PTT 30.6 SECONDS (25.2-36.5)
[2018-11-24 10:21] LABS: URINE APPEARANCE CLOUDY; URINE BILIRUBIN NEGATIVE (<2.0 mg/dL); URINE COLOR AMBER; URINE GLUCOSE (UA) NEGATIVE (NEGATIVE); URINE KETONE 1+ (NEGATIVE); URINE LEUK ESTERASE 2+ (NEGATIVE); URINE NITRITE NEGATIVE (NEGATIVE); URINE PROTEIN 2+ (NEGATIVE); URINE UROBILINOGEN NEGATIVE mg/dL (0.2-1.0)
[2018-11-24 10:25] LABS: EPI CELLS FEW /HPF (FEW); URINE BACTERIA MANY /hpf (NONE SEEN); URINE MUCUS FEW
[2018-11-24] MEDS ORDERED: CEFTRIAXONE 1,000 MG in DEXTROSE 5%-WATER - 50 ML IVPB ONE (10:40)
[2018-11-24] MEDS ORDERED: CEFTRIAXONE 1 GM/50 ML BAG ONE (10:45)
[2018-11-24 10:53] LABS: ALBUMIN 3.8 g/dl (3.4-5.0); ALK PHOS 88 U/L (45-117); ANION GAP 7 MMOL/L (8-16); BILIRUBIN,TOTAL 0.7 mg/dL (0.2-1); BLOOD UREA NITROGEN 14 mg/dL (7-18); CHLORIDE 104 mmol/L (98-107); CO2 28 mmol/L (21-32); CREATININE 0.8 mg/dL (0.55-1.3); GLUCOSE,RANDOM 123 mg/dL (74-106); POTASSIUM 3.3 mmol/L (3.5-5.1); SGOT/AST 13 U/L (15-37); SGPT/ALT 17 U/L (13-61); SODIUM 138 mmol/L (136-145); TOT PROT 7.5 g/dl (6.4-8.2)
[2018-11-24 13:31] VITALS: TEMP 97.3
[2018-11-24 14:20] VITALS: BP 119/62; PULSE 92
== END 2018-11-24 14:20 | disposition home or self-care (01) ==
LOC: JER 09:01
PROC: 3E03329 Introduction of Other Anti-infective into Peripheral Vein, Percutaneous Approach (ICD-10-PCS; principal; 2018-11-24)
PROC: 3E033NZ Introduction of Analgesics, Hypnotics, Sedatives into Peripheral Vein, Percutaneous Approach (ICD-10-PCS; 2018-11-24)
PROC: 3E0333Z Introduction of Anti-inflammatory into Peripheral Vein, Percutaneous Approach (ICD-10-PCS; 2018-11-24)
DX: N39.0 Urinary tract infection, site not specified (principal); N20.0 Calculus of kidney
CPT/HCPCS: 36415; 74176; 80053; 81003; 81015; 83605; 83690; 84703; 85025; 85610; 85730; 86850; 86900; 86901; 87086; 96365; 96375; 99283-25; J0131

== ENCOUNTER 2020-09-01 17:50 | Emergency (ER) | payer OTHER ==
[2020-09-01 18:09] VITALS: BP 119/71; PULSE 74; TEMP 97.5; BMI 41.1
[2020-09-01] MEDS ORDERED: SODIUM CHLORIDE 1,000 ML IV STA (19:41)
[2020-09-01 19:59] LABS: EPI CELLS 25 /uL (0-25.1); HYALINE CASTS 1 /uL (0-3.1); URINE APPEARANCE CLEAR; URINE BACTERIA 862 /uL (0-1359); URINE BILIRUBIN NEGATIVE (NEGATIVE); URINE COLOR YELLOW; URINE GLUCOSE (UA) NEGATIVE (NEGATIVE); URINE KETONE 1+ (NEGATIVE); URINE LEUK ESTERASE NEGATIVE (NEGATIVE); URINE NITRITE NEGATIVE (NEGATIVE); URINE PROTEIN NEGATIVE (NEGATIVE); URINE RBC 155 /uL (0-23.9); URINE UROBILINOGEN 0.2 mg/dL (0.2-1.0); URINE WBC 8 /uL (0-25.8)
[2020-09-01 20:06] LABS: HCG,QUALITATIVE URINE NEGATIVE
[2020-09-01] MEDS ORDERED: AZITHROMYCIN 500 MG TABLET PO ONE (20:12)
[2020-09-01] MEDS ORDERED: CEFTRIAXONE 1 GM/50 ML BAG ONE (20:42)
[2020-09-01] MEDS ORDERED: AZITHROMYCIN 250 MG TABLET ONE (20:42)
[2020-09-01 20:44] LABS: BASO % 0.2 % (0-2.0); EOS % 0.7 % (0-4.5); HEMATOCRIT 38.8 % (32.4-45.2); HEMOGLOBIN 13.3 GM/dL (10.7-15.3); LYMPH % 17.8 % (8-40); MCH 31.1 pg (25.7-33.7); MCHC 34.3 g/dl (32.0-36.0); MEAN CELL VOLUME 90.6 fl (80-96); MEAN PLT VOLUME 8.3 fl (7.5-11.1); MONO % 5.3 % (3.8-10.2); PLATELET COUNT 287 K/MM3 (134-434); RBC 4.28 M/mm3 (3.60-5.2); RDW 13.6 % (11.6-15.6); WHITE BLOOD COUNT 10.8 K/mm3 (4.0-10.0)
[2020-09-01] MEDS ORDERED: ACETAMINOPHEN 1000 MG/100 ML VIAL (NON FORMULARY) IVPB ONE (20:44)
[2020-09-01] MEDS ORDERED: ACETAMINOPHEN INJECTION 100 ML IVPB ONE (20:48)
[2020-09-01] MEDS ORDERED: LIDOCAINE HCL 1%, 10 MG/ML (20ML VIAL) ONE (20:49)
[2020-09-01 20:51] LABS: INR 1.06 (0.83-1.09); PROTHROMBIN TIME (PATIENT) 12.8 SEC (9.7-13.0)
[2020-09-01 21:01] LABS: POTASSIUM 3.8 mmol/L (3.5-5.1)
[2020-09-01 21:03] LABS: CALCIUM 8.6 mg/dL (8.5-10.1)
[2020-09-01 21:04] LABS: ALBUMIN 3.7 g/dl (3.4-5.0); BLOOD UREA NITROGEN 11.2 mg/dL (7-18)
[2020-09-01 21:07] LABS: CREATININE 0.6 mg/dL (0.55-1.3)
[2020-09-01 21:08] LABS: BILIRUBIN,TOTAL 0.4 mg/dL (0.2-1); TOT PROT 7.4 g/dl (6.4-8.2)
[2020-09-01] MEDS ORDERED: ONDANSETRON 4 MG/2 ML VIAL IVPUSH ONE (22:22)
== END 2020-09-01 23:25 | disposition home or self-care (01) ==
LOC: JER 17:50
PROC: 3E0333Z Introduction of Anti-inflammatory into Peripheral Vein, Percutaneous Approach (ICD-10-PCS; principal; 2020-09-01)
PROC: 3E02329 Introduction of Other Anti-infective into Muscle, Percutaneous Approach (ICD-10-PCS; 2020-09-01)
PROC: 3E033GC Introduction of Other Therapeutic Substance into Peripheral Vein, Percutaneous Approach (ICD-10-PCS; 2020-09-01)
PROC: 3E0337Z Introduction of Electrolytic and Water Balance Substance into Peripheral Vein, Percutaneous Approach (ICD-10-PCS; 2020-09-01)
DX: N73.9 Female pelvic inflammatory disease, unspecified (principal); R10.84 Generalized abdominal pain
CPT/HCPCS: 36415; 76830-TC; 80053; 81003; 83690; 84703; 85025; 85610; 87086; 87491; 87591; 99284-25; J0131

== ENCOUNTER 2021-10-02 13:29 | Emergency (ER) | payer OTHER ==
[2021-10-02 13:56] VITALS: BP 145/70; PULSE 62; TEMP 98.2; BMI 29.0
[2021-10-02] MEDS ORDERED: SODIUM PHOSPHATE/NA BIPHOS 133 ML ENEMA PR ONE (14:13)
[2021-10-02] MEDS ORDERED: MAGNESIUM CITRATE 300 ML BOTTLE PO ONE (14:13)
[2021-10-02] MEDS ORDERED: POLYETHYLENE GLYCOL 3350 119 GM BTL PO ONE (14:13)
[2021-10-02] MEDS ORDERED: POLYETHYLENE GLYCOL (HEALTHYLAX) 3350 17 GM PACKET ONE (14:25)
[2021-10-02] MEDS ORDERED: MAGNESIUM CITRATE 300 ML BOTTLE ONE (14:26)
[2021-10-02 14:53] LABS: EPI CELLS 12 /uL (0-25.1); HYALINE CASTS 5 /uL (0-3.1); URINE APPEARANCE CLOUDY; URINE BACTERIA 46 /uL (0-1359); URINE BILIRUBIN NEGATIVE (NEGATIVE); URINE COLOR YELLOW; URINE GLUCOSE (UA) NEGATIVE (NEGATIVE); URINE KETONE 4+ (NEGATIVE); URINE LEUK ESTERASE NEGATIVE (NEGATIVE); URINE NITRITE NEGATIVE (NEGATIVE); URINE PROTEIN TRACE (NEGATIVE); URINE RBC 56 /uL (0-23.9); URINE WBC 22 /uL (0-25.8)
== END 2021-10-02 15:50 | disposition home or self-care (01) ==
LOC: JER 13:29
DX: K59.09 Other constipation (principal)
CPT/HCPCS: 74019-TC-FY; 81003; 87086; 99284-25

== ENCOUNTER 2022-12-16 01:17 | Emergency (ER) | payer OTHER ==
[2022-12-16 01:24] VITALS: BP 123/78; PULSE 77; RESP 18; TEMP 98.9; BMI 26.4
[2022-12-16] MEDS ORDERED: LACTATED RINGERS SOLUTION 1000 ML INFUS.BAG IV ONE (01:48)
[2022-12-16 02:16] LABS: BASO % 0.6 % (0-2.0); HEMATOCRIT 39.6 % (32.4-45.2); HEMOGLOBIN 13.9 GM/dL (10.7-15.3); LYMPH % 33.2 % (8-40); MCH 31.7 pg (25.7-33.7); MCHC 35.1 g/dl (32.0-36.0); MEAN CELL VOLUME 90.3 fl (80-96); MEAN PLT VOLUME 8.1 fl (7.5-11.1); MONO % 5.2 % (3.8-10.2); PLATELET COUNT 244 10^3/uL (134-434); RBC 4.39 M/mm3 (3.60-5.2); RDW 13.2 % (11.6-15.6); WHITE BLOOD COUNT 5.3 K/mm3 (4.0-10.0)
[2022-12-16 02:32] LABS: ALBUMIN 4.3 g/dl (3.4-5.0); BLOOD UREA NITROGEN 13.8 mg/dL (7-18); CALCIUM 9.4 mg/dL (8.5-10.1)
[2022-12-16 02:35] LABS: CREATININE 0.6 mg/dL (0.55-1.3)
[2022-12-16 02:37] LABS: BILIRUBIN,TOTAL 0.7 mg/dL (0.2-1)
[2022-12-16] MEDS ORDERED: POTASSIUM CHLORIDE ORAL LIQUID 20 MEQ/15 ML PO ONE (02:41)
[2022-12-16] MEDS ORDERED: POTASSIUM CHLORIDE ORAL LIQUID 20 MEQ/15 ML ONE (02:55)
[2022-12-16 02:58] LABS: EPI CELLS 15 /uL (0-25.1); HYALINE CASTS 1 /uL (0-3.1); URINE APPEARANCE CLEAR; URINE BACTERIA 132 /uL (0-1359); URINE BILIRUBIN NEGATIVE (NEGATIVE); URINE COLOR YELLOW; URINE GLUCOSE (UA) NEGATIVE (NEGATIVE); URINE KETONE 1+ (NEGATIVE); URINE LEUK ESTERASE NEGATIVE (NEGATIVE); URINE NITRITE NEGATIVE (NEGATIVE); URINE PROTEIN NEGATIVE (NEGATIVE); URINE WBC 16 /uL (0-25.8)
[2022-12-16] MEDS ORDERED: CEPHALEXIN MONOHYDRATE 500 MG CAPSULE (UD) ONE (03:37)
[2022-12-16 06:10] LABS: URINE RBC 40.7 /uL (0-23.9)
== END 2022-12-16 04:04 | disposition home or self-care (01) ==
LOC: JER 01:17
DX: R42 Dizziness and giddiness (principal); R19.7 Diarrhea, unspecified
CPT/HCPCS: 0241U-QW; 36415; 80053; 81003; 84484; 85025; 87086; 93005; 93010; 99284-25

== ENCOUNTER 2023-03-18 10:03 | Emergency (ER) | payer OTHER ==
[2023-03-18 10:12] VITALS: BP 112/54; PULSE 80; RESP 18; TEMP 97.3; BMI 30.2
[2023-03-18 12:22] LABS: BASO % 0.3 % (0-2.0); EOS % 1.8 % (0-4.5); HEMATOCRIT 37.9 % (32.4-45.2); LYMPH % 16.5 % (8-40); MCHC 34.4 g/dl (32.0-36.0); MEAN CELL VOLUME 90.1 fl (80-96); MEAN PLT VOLUME 8.3 fl (7.5-11.1); MONO % 6.1 % (3.8-10.2); NEUT % 75.3 % (42.8-82.8); PLATELET COUNT 224 10^3/uL (134-434); RDW 13.1 % (11.6-15.6); WHITE BLOOD COUNT 5.5 K/mm3 (4.0-10.0)
[2023-03-18 12:26] LABS: EPI CELLS 34 /uL (0-25.1); HYALINE CASTS 4 /uL (0-3.1); URINE APPEARANCE CLEAR; URINE BACTERIA 541 /uL (0-1359); URINE BILIRUBIN NEGATIVE (NEGATIVE); URINE COLOR YELLOW; URINE GLUCOSE (UA) NEGATIVE (NEGATIVE); URINE KETONE 4+ (NEGATIVE); URINE LEUK ESTERASE TRACE (NEGATIVE); URINE NITRITE NEGATIVE (NEGATIVE); URINE PROTEIN 1+ (NEGATIVE); URINE RBC 124 /uL (0-23.9); URINE WBC 113 /uL (0-25.8)
[2023-03-18 12:34] LABS: POTASSIUM 3.4 mmol/L (3.5-5.1)
[2023-03-18 12:37] LABS: ALBUMIN 3.7 g/dl (3.4-5.0); BLOOD UREA NITROGEN 9.5 mg/dL (7-18); CALCIUM 9.2 mg/dL (8.5-10.1)
[2023-03-18 12:39] LABS: BILIRUBIN,DIRECT 0.2 mg/dL (0.0-0.2)
[2023-03-18 12:40] LABS: CREATININE 0.5 mg/dL (0.55-1.3)
[2023-03-18 12:41] LABS: TOT PROT 7.4 g/dl (6.4-8.2)
[2023-03-18 12:47] LABS: BILIRUBIN,TOTAL 0.8 mg/dL (0.2-1)
[2023-03-18] MEDS ORDERED: POTASSIUM CHLORIDE TABS 20 MEQ TABLET.ER (FP) PO ONE ×2 (12:54→13:34)
[2023-03-18 13:12] LABS: HCG,QUALITATIVE URINE Negative
== END 2023-03-18 15:02 | disposition home or self-care (01) ==
LOC: JER 10:03
DX: R19.7 Diarrhea, unspecified (principal)
CPT/HCPCS: 36415; 80048; 80076; 81003; 83690; 84703; 85025; 87045; 87046; 99283-25

== ENCOUNTER 2024-08-10 15:57 | Emergency (ER) | payer OTHER ==
[2024-08-10 16:13] VITALS: BP 109/58; PULSE 70; RESP 18; TEMP 97.5; BMI 29.5
[2024-08-10 16:48] LABS: HEMATOCRIT 39.7 % (32.4-45.2); HEMOGLOBIN 12.9 G/dL (10.7-15.3); MCH 30.3 pg (25.7-33.7); MCHC 32.4 g/dl (32.0-36.0); MEAN CELL VOLUME 93.5 fl (80-96); MEAN PLT VOLUME 7.8 fl (7.5-11.1); PLATELET COUNT 255.5 10^3/uL (134-434); RBC 4.25 10^6/uL (3.60-5.2); RDW 13.9 % (11.6-15.6)
[2024-08-10 17:15] LABS: ALBUMIN 4.1 g/dl (3.4-5.0); BILIRUBIN,TOTAL 0.6 mg/dl (0.2-1); CALCIUM 9.1 mg/dl (8.5-10.1); CREATININE 0.7 mg/dl (0.6-1.3); POTASSIUM 3.7 mmol/L (3.5-5.1)
[2024-08-10 17:20] LABS: PLATELET ESTIMATE ADEQUATE
== END 2024-08-10 17:58 | disposition home or self-care (01) ==
LOC: FER 15:57
DX: R06.02 Shortness of breath (principal); R07.89 Other chest pain; R19.7 Diarrhea, unspecified; F41.9 Anxiety disorder, unspecified; R53.1 Weakness; Z20.822 Contact with and (suspected) exposure to COVID-19
CPT/HCPCS: 0241U-QW; 36415; 71046-TC-FY; 80053; 83735; 84484; 85027; 93005; 99285-25